=== PATIENT | female | born 1940 | race African-American/Black ===

== ENCOUNTER 2017-07-11 08:26 | Day surgery (SDC) | payer MEDICARE, BC ==
[~2017-07-11] VITALS: Ht 154.9 cm; Wt 61.2 kg
[~2017-07-11 08:26] MED LIST: CIPRO; DIAZ5TAB; LIPITOR; LYRICA; METF500T; NORCO; PREG20SO; PROCARDIA; VALIUM; [UNRECOGNIZED DRUG - OTHER]
[2017-07-11] MEDS ORDERED: FURO-151 PO (10:29)
[2017-07-11] MEDS ORDERED: OMEP20CA10 PO (10:29)
[2017-07-11] MEDS ORDERED: SACU1TAB PO (10:29)
[2017-07-11] MEDS ORDERED: COR6 PO (10:29)
[2017-07-11] MEDS ORDERED: POTA20TA12 PO (10:29)
[2017-07-11] MEDS ORDERED: LIDOCAINE HCL 1% 20ML VIAL (Pyxis) INJ ONE (11:24)
[2017-07-11] MEDS ORDERED: MIDAZOLAM HCL 2 MG/2 ML VIAL ONE (11:37)
[2017-07-11] MEDS ORDERED: FENTANYL CITRATE/PF 50MCG/ML 2ML VIAL ONE (11:38)
[2017-07-11] MEDS ORDERED: IODIXANOL 320MG/ML 100 ML BOTTLE IV ONE (11:47)
[2017-07-11] MEDS ORDERED: NITROGLYCERIN 50MCG/ML 10ML VIAL (CATH LAB) IV ONE (11:59)
[2017-07-11] MEDS ORDERED: HEPARIN SODIUM 1,000 UNIT/1ML VIAL IV ONE (11:59)
[2017-07-11] MEDS ORDERED: NICARDIPINE 100MCG/ML 10ML VIAL (CATH LAB) IV ONE (11:59)
== END 2017-07-11 16:30 | disposition home or self-care (01) ==
LOC: CCL 08:26
PROVIDERS: ATTEND Specialist
DX: I25.10 Atherosclerotic heart disease of native coronary artery without angina pectoris (principal); I42.0 Dilated cardiomyopathy; I10 Essential (primary) hypertension; Z88.2 Allergy status to sulfonamides; Z91.040 Latex allergy status; Z98.890 Other specified postprocedural states; Z79.899 Other long term (current) drug therapy; Z87.19 Personal history of other diseases of the digestive system
CPT/HCPCS: 82962; 93458; 99152; 99153; C1769; C1887; C1893; J1644; J2250; J3010; J3490; Q9967

== ENCOUNTER 2021-12-04 13:25 | Emergency (ER) | payer BC, MEDICARE ==
[~2021-12-04] VITALS: Ht 167.6 cm; Wt 77.0 kg
[~2021-12-04 13:25] MED LIST changes: +COR6 PO; +FURO-151 PO; +OMEP20CA14 PO; +POTA20TA12 PO; +SACU1TAB PO
[2021-12-04] MEDS ORDERED: ACETAMINOPHEN 325MG TABLET PO ONE (14:00)
[2021-12-04] MEDS ORDERED: MORPHINE SULFATE 2 MG/ML CPJ (NOT FOR IM USE) IV ONE (15:30)
[2021-12-04 15:58] LABS: BASOPHILS % 0.2 % (0.0-2.0); EOSINOPHILS % 2.3 % (0.0-5.0); HEMATOCRIT. 35.2 % (36.0-48.0); HEMOGLOBIN. 11.6 g/dL (12.0-16.0); LYMPHOCYTES % 21.6 % (20.0-50.0); MEAN CORPUSCULAR HEMOGLOBIN 32.5 pg (28.0-32.0); MEAN CORPUSCULAR VOLUME 98.6 fL (81.0-99.0); MEAN PLATELET VOLUME 7.6 fl (7.4-10.4); MONOCYTES % 10.4 % (2.0-8.0); NEUTROPHILS % 65.5 % (40.0-76.0); PLATELET 329 x1000/uL (130-400); RED BLOOD CELL COUNT 3.58 mill/uL (4.2-5.4); RED CELL DISTRIBUTION WIDTH 15.2 % (11.6-14.6)
[2021-12-04 19:00] VITALS: BP 143/69
== END 2021-12-04 20:45 | disposition admitted as inpatient to this hospital (09) ==
LOC: ER 13:39
DX: S72.392A Other fracture of shaft of left femur, initial encounter for closed fracture (principal); W01.0XXA Fall on same level from slipping, tripping and stumbling without subsequent striking against object, initial encounter; Y93.89 Activity, other specified; Y92.89 Other specified places as the place of occurrence of the external cause; Y99.8 Other external cause status; I11.0 Hypertensive heart disease with heart failure; I50.9 Heart failure, unspecified; Z98.890 Other specified postprocedural states; Z79.899 Other long term (current) drug therapy; Z88.2 Allergy status to sulfonamides; Z20.822 Contact with and (suspected) exposure to COVID-19
CPT/HCPCS: 36415; 72170; 73552; 73560; 80048; 85025; 87426; 96374; 99284; J2270

== ENCOUNTER 2024-04-08 07:17 | Inpatient (IN) | payer MEDICARE ==
[2024-04-08] VITALS (24 sets, daily range): BP systolic 92–149; BP diastolic 57–92; PULSE 59–80; RESP 12–23; TEMP 36.33624–37.39188; O2SAT 99–100
[~2024-04-08] VITALS: Ht 162.6 cm; Wt 64.9 kg
[~2024-04-08 07:17] MED LIST changes: -CIPRO; +COR6 MT; -COR6 PO; -DIAZ5TAB; -FURO-151 PO; -LIPITOR; -LYRICA; -METF500T; -NORCO; -OMEP20CA14 PO; -POTA20TA12 PO; -PREG20SO; -PROCARDIA; -SACU1TAB PO; +SODI325T MT; -VALIUM; -[UNRECOGNIZED DRUG - OTHER]
[2024-04-08] MEDS ORDERED: EPINEPHRINE 0.1MG/ML (1:10,000) 10ML SYR ONE (08:00)
[2024-04-08 08:09] LABS: BASOPHILS % 0.6 % (0.0-2.0); EOSINOPHILS % 2.9 % (0.0-5.0); HEMATOCRIT. 28.5 % (36.0-48.0); HEMOGLOBIN. 9.1 g/dL (12.0-16.0); LYMPHOCYTES % 22.7 % (20.0-50.0); MEAN CORPUSCULAR HEMOGLOBIN 30.6 pg (28.0-32.0); MEAN CORPUSCULAR HGB CONC 32.1 g/dL (31.0-37.0); MEAN CORPUSCULAR VOLUME 95.3 fL (81.0-99.0); MEAN PLATELET VOLUME 7.8 fl (7.4-10.4); MONOCYTES % 10.3 % (2.0-8.0); NEUTROPHILS % 63.5 % (40.0-76.0); PLATELET 342 x1000/uL (130-400); RED BLOOD CELL COUNT 2.99 mill/uL (4.2-5.4); RED CELL DISTRIBUTION WIDTH 14.5 % (11.6-14.6); WHITE BLOOD COUNT 7.2 x1000/uL (4.5-11.0)
[2024-04-08] MEDS: FUROSEMIDE 40MG/4ML VIAL IVP ONE (08:14)
[2024-04-08 08:21] LABS: CHLORIDE 110 mEq/L (98-107); INR 1.1; POTASSIUM 3.5 mEq/L (3.5-5.1); PROTHROMBIN TIME 12.1 sec (9.6-11.0); SODIUM 139 mEq/L (136-145)
[2024-04-08 08:22] LABS: CARBON DIOXIDE 23 mEq/L (21-32)
[2024-04-08 08:23] LABS: CALCIUM 9.1 mg/dL (8.7-10.4)
[2024-04-08 08:27] LABS: GLUCOSE 113 mg/dL (70-105)
[2024-04-08 08:28] LABS: UREA NITROGEN BLOOD 35 mg/dL (9-23)
[2024-04-08 08:42] LABS: CREATININE 1.5 mg/dL (0.6-1.0)
[2024-04-08 08:43] LABS: TROPONIN I HIGH SENSITIVITY 111 ng/L (3.0-34)
[2024-04-08] MEDS: ASPIRIN 325MG EC TABLET PO ONE (09:02)
[2024-04-08] MEDS: CLOPIDOGREL 75MG TABLET PO ONE (09:03)
[2024-04-08] MEDS: ENOXAPARIN 60MG/0.6ML SYR SUBCUT SCH (10:24)
[2024-04-08] MEDS ORDERED: PROPOFOL 10MG/ML 100ML 100 ML IV PRN (11:15)
[2024-04-08] MEDS ORDERED: FENTANYL 2500MCG/250ML PMX 250 ML IV PRN (12:00)
[2024-04-08] MEDS ORDERED: FENTANYL CITRATE/PF 2,500 MCG in SODIUM CHLORIDE 0.9% 200 ML IV PRN (12:00)
[2024-04-08 12:11] LABS: BG BASE EXCESS -3.1 mmol/L (-2.0-3.0); BG CARBOXYHEMOGLOBIN 0.3 % (0.5-1.5); BG DEOXYHEMOGLOBIN 0.2 % (0.0-5.0); BG HCO3 ACT 21.5 mmol/L (21.0-28.0); BG METHEMOGLOBIN 0.3 % (0.5-1.5); BG OXYGEN SATURATION 99.8 % (94.0-98.0); BG OXYHEMOGLOBIN 99.2 % (94.0-98.0); BG PCO2 36.3 mmHg (32.0-45.0); BG PO2 356.2 mmHg (83.0-108.0); BG SAMPLE SITE RIGHT BRACHIAL; BG TOTAL HEMOGLOBIN 9.6 g/dL (12.0-16.0); BG VENT MODE VENT - AC
[2024-04-08] MEDS ORDERED: DOCUSATE SODIUM 100MG CAPSULE PO PRN (13:30)
[2024-04-08] MEDS ORDERED: AZITHROMYCIN 500MG/250ML 250 ML IV SCH (13:30)
[2024-04-08] MEDS ORDERED: FUROSEMIDE 40MG/4ML VIAL IVP SCH (13:30)
[2024-04-08] MEDS ORDERED: CEFTRIAXONE 1GM/50ML 50 ML IV SCH (13:30)
[2024-04-08] MEDS ORDERED: HYDRALAZINE 20MG/ML VIAL IV PRN (13:30)
[2024-04-08] MEDS ORDERED: ACETAMINOPHEN 325MG TABLET PO PRN (13:30)
[2024-04-08] MEDS ORDERED: IPRATROPIUM/ALBUTEROL 0.5-3(2.5)MG/3ML NEB HHN PRN (13:30)
[2024-04-08] MEDS ORDERED: SACU1TAB PO (13:38)
[2024-04-08] MEDS ORDERED: FURO20TA4 MT (13:38)
[2024-04-08] MEDS ORDERED: COR6 MT (13:38)
[2024-04-08] MEDS ORDERED: FUROSEMIDE 20MG/2ML VIAL IVP SCH (13:45)
[2024-04-08] MEDS: PROPOFOL 10MG/ML 100ML 100 ML IV PRN (14:11)
[2024-04-08] MEDS ORDERED: POTASSIUM CHLORIDE 20 MEQ in DEXT 5% WATER 90 ML IV ONE (15:15)
[2024-04-08 15:51] LABS: CREATINE KINASE MB FRACTION 1.2 ng/mL (0.5-3.6)
[2024-04-08 15:55] LABS: THYROID STIMULATING HORMONE 2.31 uIU/mL (0.55-4.78)
[2024-04-08 15:56] LABS: T4 FREE 1.2 ng/dL (0.89-1.76)
[2024-04-08] MEDS: INSULIN LISPRO 100 UNITS/ML SUBCUT SCH (17:00)
[2024-04-08] MEDS: KCL 20MEQ/100ML PREMIX 100 ML IV NR (17:16)
[2024-04-08] MEDS: AZITHROMYCIN 500MG/250ML 250 ML IV SCH (17:17)
[2024-04-08] MEDS: CEFTRIAXONE 1GM/50ML 50 ML IV SCH (17:17)
[2024-04-08] MEDS: BLOOD SUGAR DIAGNOSTIC STRIP TEST SCH (17:17)
[2024-04-08] MEDS: FUROSEMIDE 40MG/4ML VIAL IVP SCH (17:21)
[2024-04-08] MEDS: PANTOPRAZOLE SODIUM 40 MG/VIAL IV SCH (19:48)
[2024-04-08] MEDS: POTASSIUM CHLORIDE 20MEQ/PACKET NG SCH (19:48)
[2024-04-08 22:48] LABS: CLARITY URINE CLEAR (CLEAR); COLOR URINE YELLOW (YELLOW); GLUCOSE URINE NEGATIVE (NEGATIVE); KETONES URINE NEGATIVE (NEGATIVE); LEUKOCYTE ESTERASE URINE 1+ (NEGATIVE); NITRITE URINE NEGATIVE (NEGATIVE); OCCULT BLOOD URINE 1+ (NEGATIVE); PROTEIN URINE 2+ (NEGATIVE); SPECIFIC GRAVITY URINE 1.009 (1.005-1.030); UROBILINOGEN URINE 0.2 E.U./dL (0.2-1.0)
[2024-04-08 22:59] LABS: *AMPHETAMINES SCREEN URINE NEGATIVE (NEGATIVE); *BARBITURATES SCREEN URINE NEGATIVE (NEGATIVE); *BENZODIAZEPINES SCREEN URINE NEGATIVE (NEGATIVE); *COCAINE SCREEN URINE NEGATIVE (NEGATIVE)
[2024-04-08 23:00] LABS: METHADONE URINE SCREEN NEGATIVE (NEGATIVE); OPIATES URINE SCREEN NEGATIVE (NEGATIVE); PHENCYCLIDINE URINE SCREEN NEGATIVE (NEGATIVE)
[2024-04-08 23:01] LABS: CANNABINOID URINE SCREEN NEGATIVE (NEGATIVE); ECSTASY MDMA SCREEN URINE NEGATIVE (NEGATIVE)
[2024-04-08 23:16] LABS: BACTERIA URINE 1+; SQUAMOUS EPITHELIAL CELL URINE FEW /lpf (RARE/1+)
[2024-04-08 23:35] LABS: CREATINE KINASE MB FRACTION 1.4 ng/mL (0.5-3.6)
[2024-04-09] VITALS (65 sets, daily range): BP systolic 88–139; BP diastolic 54–106; PULSE 62–103; RESP 6–23; TEMP 36.72516–37.28076; O2SAT 97–100
[2024-04-09] MEDS: DEXTROSE 50% WATER 50ML SYRINGE IV PRN (05:35)
[2024-04-09] MEDS: BLOOD SUGAR DIAGNOSTIC STRIP TEST SCH (05:40)
[2024-04-09] MEDS: INSULIN LISPRO 100 UNITS/ML SUBCUT SCH (05:40)
[2024-04-09 05:44] LABS: CARBON DIOXIDE 24 mEq/L (21-32); CHLORIDE 107 mEq/L (98-107); POTASSIUM 3.9 mEq/L (3.5-5.1); SODIUM 142 mEq/L (136-145)
[2024-04-09 05:45] LABS: CALCIUM 8.7 mg/dL (8.7-10.4)
[2024-04-09 05:49] LABS: FOLIC ACID (FOLATE) SERUM > 20.00 ng/mL (>5.38); IRON 24 ug/dL (50-170); VITAMIN B12 SERUM 1092 pg/mL (211-911)
[2024-04-09 05:50] LABS: FERRITIN 50 ng/mL (10-291); GLUCOSE 74 mg/dL (70-105); TRIGLYCERIDE 94 mg/dL (0-150); UREA NITROGEN BLOOD 37 mg/dL (9-23)
[2024-04-09 05:51] LABS: LDL CHOLESTEROL 116 mg/dL (5-100)
[2024-04-09 05:52] LABS: ALANINE AMINOTRANSFERASE 219 IU/L (10-49); ALBUMIN 3.7 g/dL (3.2-4.8); ASPARTATE AMINOTRANSFERASE 189 IU/L (<34); BILIRUBIN DIRECT 0.1 mg/dL (<=3.0); BILIRUBIN TOTAL 0.3 mg/dL (0.1-1.0); CHOLESTEROL 162 mg/dL (<200); HDL CHOLESTEROL 29 mg/dL (>65); PHOSPHORUS 4.7 mg/dL (2.5-4.9); PROTEIN TOTAL 6.7 g/dL (6.0-8.3); TOTAL IRON BINDING CAPACITY 255 ug/dl (250-425)
[2024-04-09 05:59] LABS: INR 1.1; PROTHROMBIN TIME 11.9 sec (9.6-11.0)
[2024-04-09 06:01] LABS: BASOPHILS % 0.5 % (0.0-2.0); EOSINOPHILS % 1.9 % (0.0-5.0); HEMATOCRIT. 26.5 % (36.0-48.0); HEMOGLOBIN. 8.8 g/dL (12.0-16.0); LYMPHOCYTES % 22.9 % (20.0-50.0); MEAN CORPUSCULAR HEMOGLOBIN 31.7 pg (28.0-32.0); MEAN CORPUSCULAR HGB CONC 33.3 g/dL (31.0-37.0); MEAN CORPUSCULAR VOLUME 95.2 fL (81.0-99.0); MEAN PLATELET VOLUME 8.3 fl (7.4-10.4); MONOCYTES % 11.9 % (2.0-8.0); NEUTROPHILS % 62.8 % (40.0-76.0); PLATELET 329 x1000/uL (130-400); RED BLOOD CELL COUNT 2.78 mill/uL (4.2-5.4); RED CELL DISTRIBUTION WIDTH 14.2 % (11.6-14.6); WHITE BLOOD COUNT 8.6 x1000/uL (4.5-11.0)
[2024-04-09 06:25] LABS: TROPONIN I HIGH SENSITIVITY 226 ng/L (3.0-34)
[2024-04-09] MEDS: ASPIRIN 81MG TABLET PO SCH (08:47)
[2024-04-09] MEDS: ENOXAPARIN 30MG/0.3ML SYR SUBCUT SCH (09:23)
[2024-04-09] MEDS: DEXT 5%/0.45% NACL 1000ML 1,000 ML IV SCH (13:46)
[2024-04-09] MEDS: DOXYCYCLINE 100MG/100ML 100 ML IV SCH (13:47)
[2024-04-09 15:16] LABS: BG BASE EXCESS -0.7 mmol/L (-2.0-3.0); BG CARBOXYHEMOGLOBIN 1.1 % (0.5-1.5); BG DEOXYHEMOGLOBIN 0.5 % (0.0-5.0); BG FRACTION INSPIRED OXYGEN 40; BG HCO3 ACT 22.3 mmol/L (21.0-28.0); BG METHEMOGLOBIN 0.3 % (0.5-1.5); BG OXYGEN SATURATION 99.5 % (94.0-98.0); BG OXYHEMOGLOBIN 98.1 % (94.0-98.0); BG PCO2 30.2 mmHg (32.0-45.0); BG PH 7.486 (7.350-7.450); BG SAMPLE SITE LEFT RADIAL; BG TOTAL HEMOGLOBIN 8.8 g/dL (12.0-16.0); BG VENT MODE VENT - CPAP
[2024-04-09] MEDS: CARVEDILOL 3.125 MG TABLET NG SCH (21:27)
[2024-04-10] VITALS (33 sets, daily range): BP systolic 117–141; BP diastolic 56–88; PULSE 72–91; RESP 6–19; TEMP 36.83628–37.61412; O2SAT 99–100
[2024-04-10] MEDS: ACETAMINOPHEN 325MG TABLET PO PRN (00:05)
[2024-04-10 05:18] LABS: POTASSIUM 4.6 mEq/L (3.5-5.1)
[2024-04-10 05:24] LABS: CREATININE 2.1 mg/dL (0.6-1.0)
[2024-04-10 05:34] LABS: HEMATOCRIT. 25.5 % (36.0-48.0); HEMOGLOBIN. 8.5 g/dL (12.0-16.0); MEAN CORPUSCULAR HEMOGLOBIN 31.4 pg (28.0-32.0); MEAN CORPUSCULAR HGB CONC 33.2 g/dL (31.0-37.0); MEAN CORPUSCULAR VOLUME 94.6 fL (81.0-99.0); MEAN PLATELET VOLUME 8.4 fl (7.4-10.4); PLATELET 337 x1000/uL (130-400); RED BLOOD CELL COUNT 2.69 mill/uL (4.2-5.4); RED CELL DISTRIBUTION WIDTH 14.2 % (11.6-14.6); WHITE BLOOD COUNT 12.6 x1000/uL (4.5-11.0)
[2024-04-10 06:11] LABS: DIFFERENTIAL COMMENT 1
[2024-04-10] MEDS: FUROSEMIDE 40MG/4ML VIAL IVP SCH (08:40)
[2024-04-10 13:20] LABS: BG BASE EXCESS -2.1 mmol/L (-2.0-3.0); BG CARBOXYHEMOGLOBIN 0.3 % (0.5-1.5); BG FRACTION INSPIRED OXYGEN 40; BG HCO3 ACT 20.8 mmol/L (21.0-28.0); BG METHEMOGLOBIN 0.3 % (0.5-1.5); BG OXYHEMOGLOBIN 98.4 % (94.0-98.0); BG PCO2 29.4 mmHg (32.0-45.0); BG PH 7.468 (7.350-7.450); BG PO2 140.4 mmHg (83.0-108.0); BG SAMPLE SITE RIGHT RADIAL; BG TOTAL HEMOGLOBIN 10.2 g/dL (12.0-16.0); BG VENT MODE VENT - CPAP
[2024-04-10 15:29] LABS: PLATELET ESTIMATE NORMAL
[2024-04-10] MEDS ORDERED: NALOXONE HCL 0.4MG/ML VIAL IV PRN (15:30)
[2024-04-10] MEDS: HYDROCODONE/ACETAMINOPHEN 5/325MG TABLET PO PRN (16:29)
[2024-04-10] MEDS ORDERED: NON FORMULARY MED XX SCH (18:45)
[2024-04-11] VITALS (30 sets, daily range): BP systolic 83–145; BP diastolic 54–113; PULSE 79–113; RESP 10–24; TEMP 36.83628–37.05852; O2SAT 94–100
[2024-04-11 06:07] LABS: CARBON DIOXIDE 25 mEq/L (21-32); CHLORIDE 106 mEq/L (98-107); POTASSIUM 3.7 mEq/L (3.5-5.1); SODIUM 140 mEq/L (136-145)
[2024-04-11 06:08] LABS: CALCIUM 8.7 mg/dL (8.7-10.4)
[2024-04-11 06:12] LABS: CREATININE 1.9 mg/dL (0.6-1.0); GLUCOSE 126 mg/dL (70-105)
[2024-04-11 06:13] LABS: UREA NITROGEN BLOOD 41 mg/dL (9-23)
[2024-04-11 06:14] LABS: ALANINE AMINOTRANSFERASE 96 IU/L (10-49); ALBUMIN 3.6 g/dL (3.2-4.8); ASPARTATE AMINOTRANSFERASE 36 IU/L (<34)
[2024-04-11 06:15] LABS: BILIRUBIN TOTAL 0.3 mg/dL (0.1-1.0); PROTEIN TOTAL 6.7 g/dL (6.0-8.3)
[2024-04-11 06:55] LABS: HEMATOCRIT 24.7 % (36.0-48.0); HEMOGLOBIN 7.8 g/dL (12.0-16.0); MEAN CORPUSCULAR HEMOGLOBIN 30.6 pg (28.0-32.0); MEAN CORPUSCULAR HGB CONC 31.7 g/dL (31.0-37.0); MEAN CORPUSCULAR VOLUME 96.5 fL (81.0-99.0); PLATELET 323 x1000/uL (130-400); RED BLOOD CELL COUNT 2.56 mill/uL (4.2-5.4); RED CELL DISTRIBUTION WIDTH 14.8 % (11.6-14.6); WHITE BLOOD COUNT 12.6 x1000/uL (4.5-11.0)
[2024-04-11] MEDS: POTASSIUM CHLORIDE 20MEQ/PACKET NG SCH (08:29)
[2024-04-11] MEDS: LIDOCAINE 5% PATCH TOP SCH (08:30)
[2024-04-11] MEDS: MODAFINIL 200MG TABLET PO SCH (08:31)
[2024-04-11] MEDS: METHYLPREDNISOLONE SOD SUCC 40MG/ML (ACT-O-VIAL) IV SCH (12:15)
[2024-04-11 12:55] LABS: BG BASE EXCESS -2.1 mmol/L (-2.0-3.0); BG CARBOXYHEMOGLOBIN 0.8 % (0.5-1.5); BG DEOXYHEMOGLOBIN 0.7 % (0.0-5.0); BG FRACTION INSPIRED OXYGEN 40; BG METHEMOGLOBIN 0.3 % (0.5-1.5); BG OXYGEN SATURATION 99.3 % (94.0-98.0); BG OXYHEMOGLOBIN 98.2 % (94.0-98.0); BG PH 7.417 (7.350-7.450); BG SAMPLE SITE RIGHT RADIAL; BG TOTAL HEMOGLOBIN 8.7 g/dL (12.0-16.0); BG VENT MODE VENT - CPAP
[2024-04-11] MEDS ORDERED: BACLOFEN 10MG TABLET PO SCH (14:00)
[2024-04-11 16:59] LABS: BG BASE EXCESS -1.6 mmol/L (-2.0-3.0); BG CARBOXYHEMOGLOBIN 0.1 % (0.5-1.5); BG DEOXYHEMOGLOBIN 0.8 % (0.0-5.0); BG FRACTION INSPIRED OXYGEN 40; BG HCO3 ACT 22.1 mmol/L (21.0-28.0); BG METHEMOGLOBIN 0.3 % (0.5-1.5); BG OXYGEN SATURATION 99.2 % (94.0-98.0); BG OXYHEMOGLOBIN 98.8 % (94.0-98.0); BG PH 7.443 (7.350-7.450); BG PO2 141.3 mmHg (83.0-108.0); BG SAMPLE SITE RIGHT RADIAL; BG TOTAL HEMOGLOBIN 9.1 g/dL (12.0-16.0); BG VENT MODE COOL AEROSOL
[2024-04-11 21:25] LABS: BG BASE EXCESS 0.6 mmol/L (-2.0-3.0); BG CARBOXYHEMOGLOBIN 0.3 % (0.5-1.5); BG DEOXYHEMOGLOBIN 0.3 % (0.0-5.0); BG FRACTION INSPIRED OXYGEN 40; BG HCO3 ACT 24.5 mmol/L (21.0-28.0); BG METHEMOGLOBIN 0.3 % (0.5-1.5); BG OXYGEN SATURATION 99.7 % (94.0-98.0); BG OXYHEMOGLOBIN 99.1 % (94.0-98.0); BG PCO2 36.1 mmHg (32.0-45.0); BG PO2 185.1 mmHg (83.0-108.0); BG TOTAL HEMOGLOBIN 8.6 g/dL (12.0-16.0); BG VENT MODE COOL AEROSOL
[2024-04-12] VITALS (15 sets, daily range): BP systolic 104–134; BP diastolic 49–69; PULSE 74–94; RESP 13–23; TEMP 36.6696–36.9474; O2SAT 94–100
[2024-04-12 16:31] LABS: POTASSIUM 5.1 mEq/L (3.5-5.1)
[2024-04-12 16:32] LABS: CALCIUM 8.7 mg/dL (8.7-10.4)
[2024-04-12 16:37] LABS: CREATININE 2.1 mg/dL (0.6-1.0)
[2024-04-12 16:38] LABS: HEMOGLOBIN. 7.9 g/dL (12.0-16.0); MEAN CORPUSCULAR HEMOGLOBIN 30.3 pg (28.0-32.0); MEAN CORPUSCULAR HGB CONC 31.5 g/dL (31.0-37.0); MEAN CORPUSCULAR VOLUME 96.3 fL (81.0-99.0); MEAN PLATELET VOLUME 8.9 fl (7.4-10.4); PLATELET 343 x1000/uL (130-400); RED BLOOD CELL COUNT 2.59 mill/uL (4.2-5.4); RED CELL DISTRIBUTION WIDTH 14.7 % (11.6-14.6); WHITE BLOOD COUNT 16.1 x1000/uL (4.5-11.0)
[2024-04-12 16:40] LABS: DIFFERENTIAL COMMENT 1
[2024-04-12] MEDS: TEMAZEPAM 15MG CAPSULE PO PRN (22:04)
[2024-04-12 23:22] LABS: PLATELET ESTIMATE NORMAL
[2024-04-12 23:23] LABS: ANISOCYTOSIS 1+; OVALOCYTES 1+
[2024-04-13] VITALS (11 sets, daily range): BP systolic 94–130; BP diastolic 44–85; PULSE 76–89; RESP 12–24; TEMP 36.3918–36.6696; O2SAT 94–100
[2024-04-13 08:09] LABS: BASOPHILS % 0.2 % (0.0-2.0); EOSINOPHILS % 0.2 % (0.0-5.0); HEMATOCRIT. 24.7 % (36.0-48.0); HEMOGLOBIN. 7.9 g/dL (12.0-16.0); LYMPHOCYTES % 15.2 % (20.0-50.0); MEAN CORPUSCULAR HEMOGLOBIN 31.1 pg (28.0-32.0); MEAN CORPUSCULAR VOLUME 97.3 fL (81.0-99.0); MEAN PLATELET VOLUME 8.7 fl (7.4-10.4); MONOCYTES % 10.7 % (2.0-8.0); NEUTROPHILS % 73.7 % (40.0-76.0); PLATELET 349 x1000/uL (130-400); RED BLOOD CELL COUNT 2.54 mill/uL (4.2-5.4); RED CELL DISTRIBUTION WIDTH 14.5 % (11.6-14.6); WHITE BLOOD COUNT 14.7 x1000/uL (4.5-11.0)
[2024-04-13 08:18] LABS: CALCIUM 8.9 mg/dL (8.7-10.4); POTASSIUM 4.7 mEq/L (3.5-5.1)
[2024-04-13 08:24] LABS: CREATININE 2.2 mg/dL (0.6-1.0)
[2024-04-13] MEDS: PREDNISONE 20MG TABLET PO SCH (09:02)
[2024-04-13] MEDS: INSULIN LISPRO 100 UNITS/ML SUBCUT SCH (20:40)
[2024-04-13] MEDS: DOXYCYCLINE HYCLATE 100MG CAPSULE PO SCH (20:40)
[2024-04-13] MEDS: BLOOD SUGAR DIAGNOSTIC STRIP TEST SCH (20:40)
[2024-04-14] VITALS: BP 124/60; PULSE 79; RESP 19; TEMP 36.72516; O2SAT 98
[2024-04-14 04:00] VITALS: BP 126/57; PULSE 74; RESP 14; TEMP 36.55848; O2SAT 100
[2024-04-14 08:00] VITALS: BP 120/54; PULSE 74; RESP 15; TEMP 36.78072; O2SAT 99
[2024-04-14] MEDS: FAMOTIDINE 20MG/2ML VIAL IV SCH (08:15)
[2024-04-14 10:19] LABS: BASOPHILS % 0.2 % (0.0-2.0); HEMATOCRIT. 24.2 % (36.0-48.0); HEMOGLOBIN. 7.7 g/dL (12.0-16.0); LYMPHOCYTES % 31.4 % (20.0-50.0); MEAN CORPUSCULAR HEMOGLOBIN 30.6 pg (28.0-32.0); MEAN CORPUSCULAR HGB CONC 31.8 g/dL (31.0-37.0); MEAN PLATELET VOLUME 8.6 fl (7.4-10.4); MONOCYTES % 10.9 % (2.0-8.0); NEUTROPHILS % 55.5 % (40.0-76.0); PLATELET 393 x1000/uL (130-400); RED BLOOD CELL COUNT 2.52 mill/uL (4.2-5.4); RED CELL DISTRIBUTION WIDTH 14.4 % (11.6-14.6); WHITE BLOOD COUNT 9.3 x1000/uL (4.5-11.0)
[2024-04-14 10:25] LABS: CALCIUM 8.8 mg/dL (8.7-10.4)
[2024-04-14 12:00] VITALS: BP 114/55; PULSE 78; RESP 17; TEMP 36.61404
[2024-04-14 16:00] VITALS: BP 123/54; PULSE 76; RESP 19; TEMP 36.44736; O2SAT 98
[2024-04-14 20:00] VITALS: BP 124/58; PULSE 77; RESP 15; TEMP 36.55848; O2SAT 100
[2024-04-14 21:16] LABS: CLARITY URINE CLEAR (CLEAR); COLOR URINE YELLOW (YELLOW); GLUCOSE URINE NEGATIVE (NEGATIVE); KETONES URINE NEGATIVE (NEGATIVE); LEUKOCYTE ESTERASE URINE TRACE (NEGATIVE); NITRITE URINE NEGATIVE (NEGATIVE); OCCULT BLOOD URINE NEGATIVE (NEGATIVE); PROTEIN URINE NEGATIVE (NEGATIVE); SPECIFIC GRAVITY URINE 1.013 (1.005-1.030); UROBILINOGEN URINE 0.2 E.U./dL (0.2-1.0)
[2024-04-14 22:35] LABS: BACTERIA URINE NONE SEEN; RBC URINE NONE SEEN /hpf (0-2); SQUAMOUS EPITHELIAL CELL URINE NONE SEEN /lpf (RARE/1+); WBC URINE NONE SEEN /hpf (0-2)
[2024-04-15] VITALS: BP 118/56; PULSE 75; RESP 16; TEMP 36.9474; O2SAT 98
[2024-04-15 04:16] VITALS: BP 113/54; PULSE 71; RESP 18; TEMP 36.55848; O2SAT 95
[2024-04-15 08:00] VITALS: BP 122/59; PULSE 73; RESP 14; TEMP 37.11408; O2SAT 98
[2024-04-15 12:00] VITALS: BP 116/53; PULSE 73; RESP 16; TEMP 36.83628; O2SAT 97
[2024-04-15 16:00] VITALS: BP 127/64; PULSE 76; RESP 19; O2SAT 100
[2024-04-15 20:00] VITALS: BP 110/75; PULSE 76; RESP 18; TEMP 36.89184; O2SAT 98
[2024-04-16] VITALS (10 sets, daily range): BP systolic 114–138; BP diastolic 49–73; PULSE 75–83; RESP 14–20; TEMP 36.6696–36.9474; O2SAT 94–100
[2024-04-16] MEDS: ONDANSETRON HCL 4MG/2ML INJ IV PRN (10:01)
[2024-04-16] MEDS ORDERED: COR3 NG (17:16)
[2024-04-16] MEDS ORDERED: ASPI-1160 PO (17:16)
[2024-04-16] MEDS ORDERED: P20 PO (17:16)
[2024-04-16] MEDS ORDERED: DOXY100C5 PO (17:16)
[2024-04-16] MEDS ORDERED: ATOR20TA MT (17:18)
[2024-04-18] MEDS ORDERED: AMOX250S70 GT (12:28)
== END 2024-04-16 20:24 | disposition home health service (06) | DRG 208 ==
LOC: ER 07:17 → MICUNO 08:22 → MICUSO 04-11 23:14 → 5EST 04-12 03:20
PROVIDERS: ADMIT Internal Medicine; ATTEND Internal Medicine
PROC: 5A1945Z Respiratory Ventilation, 24-96 Consecutive Hours (ICD-10-PCS; principal; 2024-04-08)
PROC: 0BH17EZ Insertion of Endotracheal Airway into Trachea, Via Natural or Artificial Opening (ICD-10-PCS; 2024-04-08)
PROC: 06HY33Z Insertion of Infusion Device into Lower Vein, Percutaneous Approach (ICD-10-PCS; 2024-04-08)
DX: J96.01 Acute respiratory failure with hypoxia (principal); G93.41 Metabolic encephalopathy; I46.9 Cardiac arrest, cause unspecified; I50.23 Acute on chronic systolic (congestive) heart failure; I13.0 Hypertensive heart and chronic kidney disease with heart failure and stage 1 through stage 4 chronic kidney disease, or unspecified chronic kidney disease; E87.3 Alkalosis; N17.9 Acute kidney failure, unspecified; I42.9 Cardiomyopathy, unspecified; Z20.822 Contact with and (suspected) exposure to COVID-19; K27.9 Peptic ulcer, site unspecified, unspecified as acute or chronic, without hemorrhage or perforation; N18.9 Chronic kidney disease, unspecified; I44.7 Left bundle-branch block, unspecified; Z96.649 Presence of unspecified artificial hip joint; R94.31 Abnormal electrocardiogram [ECG] [EKG]; E78.5 Hyperlipidemia, unspecified; E11.22 Type 2 diabetes mellitus with diabetic chronic kidney disease; E87.6 Hypokalemia; G24.9 Dystonia, unspecified; D64.9 Anemia, unspecified; I34.0 Nonrheumatic mitral (valve) insufficiency; J44.9 Chronic obstructive pulmonary disease, unspecified; Z79.899 Other long term (current) drug therapy; Z88.2 Allergy status to sulfonamides
CPT/HCPCS: 36415; 36600; 70551; 71045; 73030; 80048; 80053; 80061; 80076; 80305; 81003; 82375; 82550; 82553; 82607; 82728; 82746; 82805; 82962; 83036; 83540; 83550; 83605; 83735; 83880; 84100; 84145; 84439; 84443; 84480; 84484; 85025; 85027; 85379; 87077; 87186; 87426; 93005; 93306; 94003; 94640; 97162; 99291; J0456; J0696; J1650; J1815; J1940; J2405; J2470; J2704; J2920; J3480; J3490; J7512

== ENCOUNTER 2024-04-28 07:34 | Inpatient (IN) | payer MEDICARE ==
[~2024-04-28] VITALS: Ht 154.9 cm; Wt 60.3 kg
[~2024-04-28 07:34] MED LIST changes: +AMOX250S70 GT; +ASPI-1160 PO; +ATOR20TA MT; +FURO20TA4 MT; +SACU1TAB PO; -SODI325T MT
[2024-04-28] MEDS: ASPIRIN 325MG TABLET PO ONE (08:21)
[2024-04-28 08:23] LABS: BASOPHILS % 0.7 % (0.0-2.0); EOSINOPHILS % 1.5 % (0.0-5.0); HEMATOCRIT. 26.3 % (36.0-48.0); HEMOGLOBIN. 8.5 g/dL (12.0-16.0); LYMPHOCYTES % 10.6 % (20.0-50.0); MEAN CORPUSCULAR HEMOGLOBIN 31.1 pg (28.0-32.0); MEAN CORPUSCULAR HGB CONC 32.4 g/dL (31.0-37.0); MEAN PLATELET VOLUME 8.1 fl (7.4-10.4); MONOCYTES % 8.5 % (2.0-8.0); NEUTROPHILS % 78.7 % (40.0-76.0); PLATELET 374 x1000/uL (130-400); RED BLOOD CELL COUNT 2.74 mill/uL (4.2-5.4); WHITE BLOOD COUNT 11.6 x1000/uL (4.5-11.0)
[2024-04-28 08:29] LABS: CHLORIDE 106 mEq/L (98-107); POTASSIUM 3.5 mEq/L (3.5-5.1); SODIUM 142 mEq/L (136-145)
[2024-04-28 08:30] LABS: CALCIUM 8.9 mg/dL (8.7-10.4); CARBON DIOXIDE 28 mEq/L (21-32)
[2024-04-28 08:35] LABS: CREATININE 1.8 mg/dL (0.6-1.0); GLUCOSE 114 mg/dL (70-105); UREA NITROGEN BLOOD 25 mg/dL (9-23)
[2024-04-28 08:41] LABS: TROPONIN I HIGH SENSITIVITY 285 ng/L (3.0-34)
[2024-04-28] MEDS: CEFTRIAXONE 1GM/50ML 50 ML IV ONE (09:45)
[2024-04-28] MEDS: FUROSEMIDE 40MG/4ML VIAL IVP ONE (09:50)
[2024-04-28] MEDS: ENOXAPARIN 60MG/0.6ML SYR SUBCUT ONE (10:12)
[2024-04-28] MEDS: AZITHROMYCIN 500MG/250ML 250 ML IV STA (10:13)
[2024-04-28 10:56] LABS: TROPONIN I HIGH SENSITIVITY 324 ng/L (3.0-34)
[2024-04-28] MEDS ORDERED: ASPIRIN 81MG TABLET PO SCH (13:45)
[2024-04-28] MEDS ORDERED: ONDANSETRON HCL 4MG/2ML INJ IV PRN (13:45)
[2024-04-28] MEDS ORDERED: IPRATROPIUM/ALBUTEROL 0.5-3(2.5)MG/3ML NEB HHN PRN (13:45)
[2024-04-28] MEDS ORDERED: ENOXAPARIN 30MG/0.3ML SYR SUBCUT SCH (14:00)
[2024-04-28] MEDS ORDERED: NALOXONE HCL 0.4MG/ML VIAL IV PRN (14:00)
[2024-04-28] MEDS: ATORVASTATIN CALCIUM 20MG TABLET PO SCH (14:13)
[2024-04-28] MEDS: CARVEDILOL 6.25 MG TABLET PO SCH (14:14)
[2024-04-28] MEDS: PIPERACILLIN/TAZO 3.375G/50ML 50 ML IV SCH (15:31)
[2024-04-28] MEDS: PANTOPRAZOLE SODIUM 40 MG/VIAL IV NR (17:31)
[2024-04-28 22:12] LABS: CREATINE KINASE MB FRACTION 2.5 ng/mL (0.5-3.6)
[2024-04-28 23:00] VITALS: BP 150/78; PULSE 80; RESP 20; TEMP 36.5292
[2024-04-28] MEDS: HYDROCODONE/ACETAMINOPHEN 5/325MG TABLET PO PRN (23:39)
[2024-04-29 04:00] VITALS: BP 148/80; PULSE 75; RESP 18; TEMP 36.114; O2SAT 100
[2024-04-29 06:42] LABS: CALCIUM 8.5 mg/dL (8.7-10.4); CARBON DIOXIDE 28 mEq/L (21-32); CHLORIDE 104 mEq/L (98-107); POTASSIUM 3.5 mEq/L (3.5-5.1); SODIUM 140 mEq/L (136-145)
[2024-04-29 06:47] LABS: CREATININE 1.7 mg/dL (0.6-1.0)
[2024-04-29 06:48] LABS: GLUCOSE 80 mg/dL (70-105); UREA NITROGEN BLOOD 26 mg/dL (9-23)
[2024-04-29 07:40] LABS: TROPONIN I HIGH SENSITIVITY 545 ng/L (3.0-34)
[2024-04-29 08:00] VITALS: BP 146/70; PULSE 77; RESP 18; TEMP 36.61404; O2SAT 97
[2024-04-29 08:03] LABS: BASOPHILS % 0.1 % (0.0-2.0); EOSINOPHILS % 2.2 % (0.0-5.0); HEMATOCRIT. 22.1 % (36.0-48.0); HEMOGLOBIN. 7.4 g/dL (12.0-16.0); LYMPHOCYTES % 23.1 % (20.0-50.0); MEAN CORPUSCULAR HEMOGLOBIN 31.5 pg (28.0-32.0); MEAN CORPUSCULAR HGB CONC 33.2 g/dL (31.0-37.0); MEAN CORPUSCULAR VOLUME 94.9 fL (81.0-99.0); MEAN PLATELET VOLUME 8.6 fl (7.4-10.4); MONOCYTES % 10.9 % (2.0-8.0); NEUTROPHILS % 63.7 % (40.0-76.0); PLATELET 282 x1000/uL (130-400); RED BLOOD CELL COUNT 2.33 mill/uL (4.2-5.4); RED CELL DISTRIBUTION WIDTH 15.7 % (11.6-14.6); WHITE BLOOD COUNT 9.9 x1000/uL (4.5-11.0)
[2024-04-29] MEDS ORDERED: FUROSEMIDE 20MG/2ML VIAL IVP NR (08:15)
[2024-04-29] MEDS ORDERED: ASPIRIN 81MG TABLET PO SCH (09:00)
[2024-04-29] MEDS ORDERED: ENOXAPARIN 30MG/0.3ML SYR SUBCUT SCH (09:00)
[2024-04-29] MEDS: FUROSEMIDE 40MG/4ML VIAL IVP SCH (10:39)
[2024-04-29] MEDS: NITROGLYCERIN OINT 1GM/INCH UDPKT TD SCH (10:39)
[2024-04-29] MEDS: PANTOPRAZOLE SODIUM 40 MG/VIAL IV SCH (10:39)
[2024-04-29 12:00] VITALS: BP 123/64; PULSE 75; RESP 19; TEMP 36.61404; O2SAT 100
[2024-04-29 14:33] LABS: BG BASE EXCESS 2.7 mmol/L (-2.0-3.0); BG CARBOXYHEMOGLOBIN 0.9 % (0.5-1.5); BG DEOXYHEMOGLOBIN 5.8 % (0.0-5.0); BG FRACTION INSPIRED OXYGEN 21; BG HCO3 ACT 26.8 mmol/L (21.0-28.0); BG METHEMOGLOBIN 0.3 % (0.5-1.5); BG OXYGEN SATURATION 94.1 % (94.0-98.0); BG PCO2 39.2 mmHg (32.0-45.0); BG PH 7.453 (7.350-7.450); BG PO2 67.6 mmHg (83.0-108.0); BG SAMPLE SITE RIGHT RADIAL; BG VENT MODE ROOM AIR
[2024-04-29 16:00] VITALS: BP 121/63; PULSE 75; RESP 20; TEMP 36.44736; O2SAT 95
[2024-04-29 20:00] VITALS: BP 137/70; PULSE 78; RESP 18; TEMP 36.28068; O2SAT 100
[2024-04-29] MEDS: ATORVASTATIN CALCIUM 20MG TABLET PO SCH (21:45)
[2024-04-29] MEDS: EPOETIN ALFA-EPBX 4,000 UNIT/ML VIAL SUBCUT NR (21:46)
[2024-04-30] VITALS (7 sets, daily range): BP systolic 130–136; BP diastolic 66–72; PULSE 73–95; RESP 18–20; TEMP 36.16956–36.50292; O2SAT 96–100
[2024-04-30 09:24] LABS: BASOPHILS % 0.8 % (0.0-2.0); EOSINOPHILS % 4.1 % (0.0-5.0); HEMATOCRIT. 21.7 % (36.0-48.0); HEMOGLOBIN. 7.3 g/dL (12.0-16.0); LYMPHOCYTES % 27.3 % (20.0-50.0); MEAN CORPUSCULAR HEMOGLOBIN 31.8 pg (28.0-32.0); MEAN CORPUSCULAR HGB CONC 33.6 g/dL (31.0-37.0); MEAN CORPUSCULAR VOLUME 94.6 fL (81.0-99.0); MEAN PLATELET VOLUME 8.4 fl (7.4-10.4); MONOCYTES % 10.8 % (2.0-8.0); PLATELET 276 x1000/uL (130-400); RED BLOOD CELL COUNT 2.29 mill/uL (4.2-5.4); RED CELL DISTRIBUTION WIDTH 15.3 % (11.6-14.6); WHITE BLOOD COUNT 6.1 x1000/uL (4.5-11.0)
[2024-04-30 09:28] LABS: CHLORIDE 102 mEq/L (98-107); POTASSIUM 3.6 mEq/L (3.5-5.1); SODIUM 137 mEq/L (136-145)
[2024-04-30 09:29] LABS: CALCIUM 8.9 mg/dL (8.7-10.4); CARBON DIOXIDE 28 mEq/L (21-32)
[2024-04-30 09:33] LABS: IRON 24 ug/dL (50-170)
[2024-04-30 09:34] LABS: CREATININE 1.6 mg/dL (0.6-1.0); GLUCOSE 93 mg/dL (70-105); UREA NITROGEN BLOOD 23 mg/dL (9-23)
[2024-04-30 09:36] LABS: TOTAL IRON BINDING CAPACITY 241 ug/dl (250-425)
[2024-04-30 09:44] LABS: TROPONIN I HIGH SENSITIVITY 235 ng/L (3.0-34)
[2024-04-30] MEDS: EPOETIN ALFA-EPBX 4,000 UNIT/ML VIAL SUBCUT SCH (22:24)
[2024-05-01] VITALS: BP 128/63; PULSE 75; RESP 19; TEMP 36.44736; O2SAT 100
[2024-05-01 04:00] VITALS: BP 126/62; PULSE 66; RESP 18; TEMP 36.50292; O2SAT 100
[2024-05-01 06:48] LABS: POTASSIUM 3.6 mEq/L (3.5-5.1)
[2024-05-01 06:50] LABS: CALCIUM 8.6 mg/dL (8.7-10.4)
[2024-05-01 06:52] LABS: BASOPHILS % 0.6 % (0.0-2.0); HEMATOCRIT. 22.9 % (36.0-48.0); HEMOGLOBIN. 7.5 g/dL (12.0-16.0); LYMPHOCYTES % 31.3 % (20.0-50.0); MEAN CORPUSCULAR HEMOGLOBIN 31.1 pg (28.0-32.0); MEAN CORPUSCULAR HGB CONC 32.7 g/dL (31.0-37.0); MEAN CORPUSCULAR VOLUME 95.1 fL (81.0-99.0); MEAN PLATELET VOLUME 7.9 fl (7.4-10.4); MONOCYTES % 12.5 % (2.0-8.0); NEUTROPHILS % 50.6 % (40.0-76.0); PLATELET 251 x1000/uL (130-400); RED BLOOD CELL COUNT 2.41 mill/uL (4.2-5.4); RED CELL DISTRIBUTION WIDTH 15.2 % (11.6-14.6)
[2024-05-01 06:54] LABS: CREATININE 1.7 mg/dL (0.6-1.0)
[2024-05-01 08:00] VITALS: BP 127/57; PULSE 69; RESP 20; TEMP 36.44736; O2SAT 100
[2024-05-01] MEDS: PANTOPRAZOLE 40MG DR TABLET PO SCH (09:33)
[2024-05-01 10:42] LABS: BG BASE EXCESS 2.4 mmol/L (-2.0-3.0); BG CARBOXYHEMOGLOBIN 0.7 % (0.5-1.5); BG DEOXYHEMOGLOBIN 2.8 % (0.0-5.0); BG FRACTION INSPIRED OXYGEN 21; BG METHEMOGLOBIN 0.3 % (0.5-1.5); BG OXYGEN SATURATION 97.2 % (94.0-98.0); BG OXYHEMOGLOBIN 96.2 % (94.0-98.0); BG PCO2 37.2 mmHg (32.0-45.0); BG PH 7.462 (7.350-7.450); BG PO2 90.7 mmHg (83.0-108.0); BG SAMPLE SITE LEFT RADIAL; BG TOTAL HEMOGLOBIN 15.2 g/dL (12.0-16.0); BG VENT MODE ROOM AIR
[2024-05-01 12:00] VITALS: BP 124/59; PULSE 79; RESP 18; TEMP 36.50292; O2SAT 98
[2024-05-01 16:00] VITALS: BP 132/72; PULSE 80; RESP 18; TEMP 36.55848; O2SAT 98
[2024-05-01 20:00] VITALS: BP 142/76; PULSE 83; RESP 19; TEMP 36.16956; O2SAT 100
[2024-05-02] VITALS: BP 138/65; PULSE 76; RESP 20; TEMP 36.33624; O2SAT 98
[2024-05-02 04:00] VITALS: BP 135/71; PULSE 72; RESP 20; TEMP 36.16956; O2SAT 98
[2024-05-02] MEDS: EPOETIN ALFA-EPBX 4,000 UNIT/ML VIAL SUBCUT NR (06:15)
[2024-05-02 07:13] LABS: HEMATOCRIT 22.7 % (36.0-48.0); HEMOGLOBIN 7.4 g/dL (12.0-16.0); MEAN CORPUSCULAR HEMOGLOBIN 31.3 pg (28.0-32.0); MEAN CORPUSCULAR HGB CONC 32.5 g/dL (31.0-37.0); MEAN CORPUSCULAR VOLUME 96.6 fL (81.0-99.0); PLATELET 250 x1000/uL (130-400); POTASSIUM 3.8 mEq/L (3.5-5.1); RED BLOOD CELL COUNT 2.36 mill/uL (4.2-5.4); RED CELL DISTRIBUTION WIDTH 15.1 % (11.6-14.6); WHITE BLOOD COUNT 6.3 x1000/uL (4.5-11.0)
[2024-05-02 07:14] LABS: CALCIUM 8.9 mg/dL (8.7-10.4)
[2024-05-02 07:18] LABS: CREATININE 1.5 mg/dL (0.6-1.0)
[2024-05-02 08:00] VITALS: BP 151/78; PULSE 77; RESP 18; TEMP 36.114; O2SAT 100; O2SAT 18
[2024-05-02 12:00] VITALS: BP 109/52; PULSE 74; RESP 18; TEMP 36.22512; O2SAT 100
[2024-05-02] MEDS ORDERED: PANT40TA51 PO (12:44)
[2024-05-02] MEDS ORDERED: ASPI-1160 PO (12:44)
[2024-05-02] MEDS ORDERED: SACU1TAB PO (12:44)
[2024-05-02] MEDS ORDERED: FURO20TA4 MT (12:44)
[2024-05-02] MEDS ORDERED: COR6 MT (12:44)
[2024-05-02] MEDS ORDERED: ATOR20TA MT (12:44)
[2024-05-02 14:05] VITALS: BP 109/52; PULSE 76; TEMP 97.6; O2SAT 100
== END 2024-05-02 15:20 | disposition home or self-care (01) | DRG 291 ==
LOC: ER 07:34 → EDBEDREQ 07:58 → EDBEDREQSVC 09:04 → EDBEDREQTM 09:04 → EDBEDREQ 09:04 → EDBEDREQSVC 16:18 → 5WST 20:56 → 7EST 23:00
PROVIDERS: ADMIT Internal Medicine; ATTEND Internal Medicine
DX: I13.0 Hypertensive heart and chronic kidney disease with heart failure and stage 1 through stage 4 chronic kidney disease, or unspecified chronic kidney disease (principal); I50.23 Acute on chronic systolic (congestive) heart failure; N18.9 Chronic kidney disease, unspecified; D53.9 Nutritional anemia, unspecified; I42.8 Other cardiomyopathies; I34.0 Nonrheumatic mitral (valve) insufficiency; E78.5 Hyperlipidemia, unspecified; E11.22 Type 2 diabetes mellitus with diabetic chronic kidney disease; I44.7 Left bundle-branch block, unspecified; Z86.74 Personal history of sudden cardiac arrest; Z88.2 Allergy status to sulfonamides
CPT/HCPCS: 36415; 36600; 71045; 80048; 82270; 82375; 82550; 82553; 82805; 83540; 83550; 83735; 84484; 85025; 85027; 93005; 99285; J0456; J0696; J0885; J1650; J1940; J2470; J2543

== ENCOUNTER 2024-12-28 19:18 | Inpatient (IN) | payer MEDICARE ==
[~2024-12-28] VITALS: Ht 152.4 cm; Wt 83.5 kg
[~2024-12-28 19:18] MED LIST changes: -AMOX250S70 GT; -ATOR20TA MT; +ATOR20TA65 PO; +CARV12.545 PO; -COR6 MT; -FURO20TA4 MT; +FURO40TA5 PO; +PANT40TA51 PO; +SPIR25TA6 PO
[2024-12-28 20:38] LABS: HEMATOCRIT. 25.9 % (36.0-48.0); HEMOGLOBIN. 8.6 g/dL (12.0-16.0); MEAN CORPUSCULAR HEMOGLOBIN 28.4 pg (28.0-32.0); MEAN CORPUSCULAR VOLUME 86.1 fL (81.0-99.0); MEAN PLATELET VOLUME 9.1 fl (7.4-10.4); PLATELET 166 x1000/uL (130-400); RED BLOOD CELL COUNT 3.01 mill/uL (4.2-5.4); RED CELL DISTRIBUTION WIDTH 20.7 % (11.6-14.6); WHITE BLOOD COUNT 4.5 x1000/uL (4.5-11.0)
[2024-12-28 20:42] LABS: DIFFERENTIAL COMMENT 1
[2024-12-28 20:45] LABS: CARBON DIOXIDE 26 mEq/L (21-32); CHLORIDE 103 mEq/L (98-107); SODIUM 139 mEq/L (136-145)
[2024-12-28 20:46] LABS: CALCIUM 8.7 mg/dL (8.7-10.4)
[2024-12-28 20:51] LABS: CREATININE 2.3 mg/dL (0.6-1.0); GLUCOSE 131 mg/dL (70-105); TROPONIN I HIGH SENSITIVITY 16 ng/L (3.0-34); UREA NITROGEN BLOOD 40 mg/dL (9-23)
[2024-12-28 20:54] LABS: ANISOCYTOSIS 1+; PLATELET ESTIMATE NORMAL
[2024-12-28] MEDS: FUROSEMIDE 40MG/4ML VIAL IVP NR (22:58)
[2024-12-29] VITALS: BP 125/66; PULSE 69; RESP 18; TEMP 36.4
[2024-12-29] MEDS ORDERED: ACETAMINOPHEN 650MG/20.3ML UDC PO PRN (03:30)
[2024-12-29 07:31] LABS: HEMATOCRIT. 25.8 % (36.0-48.0); HEMOGLOBIN. 8.6 g/dL (12.0-16.0); MEAN CORPUSCULAR HEMOGLOBIN 28.3 pg (28.0-32.0); MEAN CORPUSCULAR HGB CONC 33.3 g/dL (31.0-37.0); MEAN CORPUSCULAR VOLUME 85.2 fL (81.0-99.0); MEAN PLATELET VOLUME 9.5 fl (7.4-10.4); PLATELET 172 x1000/uL (130-400); RED BLOOD CELL COUNT 3.02 mill/uL (4.2-5.4); RED CELL DISTRIBUTION WIDTH 20.1 % (11.6-14.6); WHITE BLOOD COUNT 3.7 x1000/uL (4.5-11.0)
[2024-12-29 07:32] LABS: DIFFERENTIAL COMMENT 1
[2024-12-29 08:00] VITALS: BP 110/65; PULSE 71; RESP 20; TEMP 36.2; O2SAT 95
[2024-12-29 08:18] LABS: THYROID STIMULATING HORMONE 8.98 uIU/mL (0.55-4.78)
[2024-12-29] MEDS: CARVEDILOL 12.5MG TABLET PO SCH ×2 (09:18→21:09)
[2024-12-29] MEDS: ASPIRIN 81MG TABLET PO SCH (09:18)
[2024-12-29 12:00] VITALS: BP 108/74; PULSE 69; RESP 18; TEMP 36.2; O2SAT 95
[2024-12-29 12:14] LABS: ANISOCYTOSIS 3+; PLATELET ESTIMATE NORMAL
[2024-12-29 14:01] LABS: POTASSIUM 4.1 mEq/L (3.5-5.1)
[2024-12-29 14:02] LABS: CALCIUM 8.4 mg/dL (8.7-10.4)
[2024-12-29 14:07] LABS: CREATININE 2.2 mg/dL (0.6-1.0)
[2024-12-29] MEDS: ENOXAPARIN 30MG/0.3ML SYR SUBCUT SCH (15:05)
[2024-12-29 16:00] VITALS: BP 111/64; PULSE 66; RESP 20; TEMP 36.6; O2SAT 95
[2024-12-29 20:00] VITALS: BP 115/60; PULSE 70; RESP 18; TEMP 36.3; O2SAT 100
[2024-12-29] MEDS: ACETAMINOPHEN 650MG/20.3ML UDC PO PRN (21:08)
[2024-12-29] MEDS: FUROSEMIDE 40MG/4ML VIAL IVP SCH (21:08)
[2024-12-29] MEDS: ATORVASTATIN CALCIUM 20MG TABLET PO SCH (21:09)
[2024-12-30] VITALS: BP 118/61; PULSE 63; RESP 17; TEMP 36.4; O2SAT 99
[2024-12-30 04:00] VITALS: BP 116/68; PULSE 68; RESP 20; TEMP 36.3; O2SAT 100
[2024-12-30 08:00] VITALS: BP 104/74; PULSE 64; RESP 20; TEMP 36.6; O2SAT 97
[2024-12-30] MEDS: METOLAZONE 2.5MG TABLET PO ONE (08:42)
[2024-12-30 09:21] LABS: CHLORIDE 102 mEq/L (98-107); SODIUM 140 mEq/L (136-145)
[2024-12-30 09:22] LABS: CALCIUM 8.5 mg/dL (8.7-10.4); CARBON DIOXIDE 28 mEq/L (21-32); HEMATOCRIT. 23.9 % (36.0-48.0); HEMOGLOBIN. 7.9 g/dL (12.0-16.0); MEAN CORPUSCULAR HEMOGLOBIN 28.4 pg (28.0-32.0); MEAN CORPUSCULAR HGB CONC 33.3 g/dL (31.0-37.0); MEAN CORPUSCULAR VOLUME 85.2 fL (81.0-99.0); MEAN PLATELET VOLUME 10.2 fl (7.4-10.4); PLATELET 174 x1000/uL (130-400); RED CELL DISTRIBUTION WIDTH 20.5 % (11.6-14.6); WHITE BLOOD COUNT 3.5 x1000/uL (4.5-11.0)
[2024-12-30 09:27] LABS: CREATININE 2.2 mg/dL (0.6-1.0); GLUCOSE 85 mg/dL (70-105); TROPONIN I HIGH SENSITIVITY 15 ng/L (3.0-34); UREA NITROGEN BLOOD 42 mg/dL (9-23)
[2024-12-30 09:35] LABS: DIFFERENTIAL COMMENT 1
[2024-12-30] MEDS ORDERED: ASPIRIN 81MG EC TABLET PO ONE (10:00)
[2024-12-30] MEDS: MORPHINE SULFATE 2 MG/ML INJ (NOT FOR IM USE) IV PRN (10:56)
[2024-12-30] MEDS: MAGNESIUM OXIDE 400MG TABLET PO SCH (10:56)
[2024-12-30 12:00] VITALS: BP 108/52; PULSE 67; RESP 18; TEMP 36.4; O2SAT 97
[2024-12-30] MEDS ORDERED: MAGNESIUM OXIDE 400MG TABLET PO SCH (12:30)
[2024-12-30 16:00] VITALS: BP 90/52; PULSE 62; RESP 18; TEMP 36.2; O2SAT 97
[2024-12-30] MEDS: FUROSEMIDE 100MG/10ML VIAL IVP SCH (16:16)
[2024-12-30] MEDS: DOCUSATE SODIUM 100MG CAPSULE PO PRN (16:16)
[2024-12-30 20:00] VITALS: BP 123/60; PULSE 65; RESP 18; TEMP 36.5; O2SAT 100
[2024-12-30 21:10] LABS: PLATELET ESTIMATE NORMAL
[2024-12-30 21:11] LABS: ANISOCYTOSIS 3+; HYPOCHROMASIA 1+
[2024-12-30 21:12] LABS: OVALOCYTES 1+
[2024-12-31] VITALS: BP 112/65; PULSE 68; RESP 18; TEMP 36.6; O2SAT 100
[2024-12-31 04:00] VITALS: BP 109/46; PULSE 69; RESP 20; TEMP 36.4; O2SAT 100
[2024-12-31 06:09] LABS: HEMATOCRIT. 24.9 % (36.0-48.0); HEMOGLOBIN. 8.2 g/dL (12.0-16.0); MEAN CORPUSCULAR HEMOGLOBIN 27.9 pg (28.0-32.0); MEAN CORPUSCULAR HGB CONC 32.8 g/dL (31.0-37.0); MEAN CORPUSCULAR VOLUME 85.2 fL (81.0-99.0); MEAN PLATELET VOLUME 10.4 fl (7.4-10.4); PLATELET 176 x1000/uL (130-400); RED BLOOD CELL COUNT 2.92 mill/uL (4.2-5.4); RED CELL DISTRIBUTION WIDTH 20.2 % (11.6-14.6)
[2024-12-31 06:52] LABS: DIFFERENTIAL COMMENT 1
[2024-12-31 08:00] VITALS: BP 104/40; PULSE 80; RESP 18; TEMP 35.9; O2SAT 96
[2024-12-31 08:35] LABS: POTASSIUM 4.2 mEq/L (3.5-5.1)
[2024-12-31 08:36] LABS: CALCIUM 8.3 mg/dL (8.7-10.4)
[2024-12-31 08:41] LABS: CREATININE 2.3 mg/dL (0.6-1.0)
[2024-12-31] MEDS ORDERED: ASPIRIN 81MG EC TABLET PO SCH (09:00)
[2024-12-31] MEDS ORDERED: LIDOCAINE HCL 1% 20ML VIAL ONE ×2 (09:18→10:54)
[2024-12-31] MEDS ORDERED: IODIXANOL 320MG/ML 100 ML BOTTLE IV ONE ×2 (10:49→11:29)
[2024-12-31] MEDS ORDERED: FENTANYL CITRATE/PF 50MCG/ML 2ML VIAL ONE (10:53)
[2024-12-31] MEDS ORDERED: MIDAZOLAM HCL 2 MG/2 ML VIAL ONE (10:54)
[2024-12-31 12:00] VITALS: BP 116/53; PULSE 64; RESP 16; TEMP 35.8; O2SAT 100
[2024-12-31] MEDS: HYDROCODONE/ACETAMINOPHEN 5/325MG TABLET PO PRN (15:27)
[2024-12-31 15:28] LABS: ANISOCYTOSIS 2+; HYPOCHROMASIA 1+; PLATELET ESTIMATE NORMAL
[2024-12-31 16:00] VITALS: BP 116/52; PULSE 86; RESP 16; TEMP 35.9; O2SAT 97
[2024-12-31 20:00] VITALS: BP 106/47; PULSE 72; RESP 20; TEMP 36.6; O2SAT 100
[2025-01-01] VITALS (7 sets, daily range): BP systolic 99–115; BP diastolic 41–49; PULSE 69–77; RESP 18–20; TEMP 36.4–37; O2SAT 95–100
[2025-01-01] MEDS: METOLAZONE 2.5MG TABLET PO NR (06:14)
[2025-01-01 07:28] LABS: HEMATOCRIT. 24.2 % (36.0-48.0); HEMOGLOBIN. 7.8 g/dL (12.0-16.0); MEAN CORPUSCULAR HEMOGLOBIN 27.8 pg (28.0-32.0); MEAN CORPUSCULAR HGB CONC 32.3 g/dL (31.0-37.0); MEAN PLATELET VOLUME 9.9 fl (7.4-10.4); PLATELET 212 x1000/uL (130-400); RED BLOOD CELL COUNT 2.81 mill/uL (4.2-5.4); RED CELL DISTRIBUTION WIDTH 20.7 % (11.6-14.6); WHITE BLOOD COUNT 4.1 x1000/uL (4.5-11.0)
[2025-01-01 07:45] LABS: DIFFERENTIAL COMMENT 1; POTASSIUM 5.7 mEq/L (3.5-5.1)
[2025-01-01 07:46] LABS: CALCIUM 8.6 mg/dL (8.7-10.4)
[2025-01-01 07:51] LABS: CREATININE 2.4 mg/dL (0.6-1.0)
[2025-01-01] MEDS ORDERED: SODIUM POLYSTYRENE SULFONATE 15 G/60 ML BOT PO ONE (09:15)
[2025-01-01] MEDS ORDERED: TRAMADOL 50MG TABLET PO PRN (10:00)
[2025-01-01] MEDS: SODIUM ZIRCONIUM CYCLOSILICATE 10GM/PACKET PO NR (10:09)
[2025-01-01] MEDS: TRAMADOL 50MG TABLET PO SCH (10:10)
[2025-01-01 11:45] LABS: ANISOCYTOSIS 2+; PLATELET ESTIMATE NORMAL
[2025-01-01 11:46] LABS: HYPOCHROMASIA 1+
[2025-01-01] MEDS: FUROSEMIDE 40MG TABLET PO SCH (20:21)
[2025-01-01] MEDS: ZOLPIDEM TARTRATE 5MG TABLET PO PRN (22:14)
[2025-01-02] VITALS (7 sets, daily range): BP systolic 93–118; BP diastolic 38–54; PULSE 68–82; RESP 18–20; TEMP 36.5–36.6; O2SAT 96–99
[2025-01-02 07:59] LABS: POTASSIUM 4.3 mEq/L (3.5-5.1)
[2025-01-02 08:00] LABS: CALCIUM 8.3 mg/dL (8.7-10.4); HEMATOCRIT. 22.9 % (36.0-48.0); HEMOGLOBIN. 7.5 g/dL (12.0-16.0); MEAN CORPUSCULAR HEMOGLOBIN 28.1 pg (28.0-32.0); MEAN CORPUSCULAR HGB CONC 32.8 g/dL (31.0-37.0); MEAN CORPUSCULAR VOLUME 85.7 fL (81.0-99.0); MEAN PLATELET VOLUME 9.2 fl (7.4-10.4); PLATELET 222 x1000/uL (130-400); RED BLOOD CELL COUNT 2.68 mill/uL (4.2-5.4); RED CELL DISTRIBUTION WIDTH 20.4 % (11.6-14.6); WHITE BLOOD COUNT 4.1 x1000/uL (4.5-11.0)
[2025-01-02 08:04] LABS: CREATININE 2.2 mg/dL (0.6-1.0)
[2025-01-02 08:21] LABS: DIFFERENTIAL COMMENT 1
[2025-01-02] MEDS: CLOPIDOGREL 75MG TABLET PO SCH (10:14)
[2025-01-02] MEDS: PANTOPRAZOLE 40MG DR TABLET PO SCH (11:00)
[2025-01-02 11:41] LABS: ANISOCYTOSIS 2+; HYPOCHROMASIA 1+; PLATELET ESTIMATE NORMAL; TARGET CELLS 1+
[2025-01-02] MEDS ORDERED: COR3 MT (14:07)
[2025-01-03] MEDS ORDERED: PANTOPRAZOLE 40MG DR TABLET PO SCH (07:40)
== END 2025-01-02 21:45 | disposition home health service (06) | DRG 252 ==
LOC: ER 19:18 → EDBEDREQ 20:50 → 7WST 22:45 → EDBEDREQ 22:58 → ENRESERV 23:24
PROVIDERS: ADMIT Internal Medicine; ATTEND Internal Medicine
PROC: B51N1ZZ Fluoroscopy of Left Upper Extremity Veins using Low Osmolar Contrast (ICD-10-PCS; principal; 2024-12-31)
PROC: 05763DZ Dilation of Left Subclavian Vein with Intraluminal Device, Percutaneous Approach (ICD-10-PCS; 2024-12-31)
PROC: 05HA33Z Insertion of Infusion Device into Left Brachial Vein, Percutaneous Approach (ICD-10-PCS; 2024-12-31)
PROC: B54NZZA Ultrasonography of Left Upper Extremity Veins, Guidance (ICD-10-PCS; 2024-12-31)
PROC: B5171ZZ Fluoroscopy of Left Subclavian Vein using Low Osmolar Contrast (ICD-10-PCS; 2024-12-31)
DX: I87.1 Compression of vein (principal); I50.23 Acute on chronic systolic (congestive) heart failure; I13.0 Hypertensive heart and chronic kidney disease with heart failure and stage 1 through stage 4 chronic kidney disease, or unspecified chronic kidney disease; I42.0 Dilated cardiomyopathy; N17.9 Acute kidney failure, unspecified; N18.9 Chronic kidney disease, unspecified; I27.20 Pulmonary hypertension, unspecified; M47.9 Spondylosis, unspecified; G89.4 Chronic pain syndrome; I08.1 Rheumatic disorders of both mitral and tricuspid valves; D63.8 Anemia in other chronic diseases classified elsewhere; E78.5 Hyperlipidemia, unspecified; Z99.3 Dependence on wheelchair; Z88.2 Allergy status to sulfonamides; Z79.899 Other long term (current) drug therapy; Z79.02 Long term (current) use of antithrombotics/antiplatelets; Z86.718 Personal history of other venous thrombosis and embolism; Z95.810 Presence of automatic (implantable) cardiac defibrillator; Z79.82 Long term (current) use of aspirin; E87.5 Hyperkalemia; M75.102 Unspecified rotator cuff tear or rupture of left shoulder, not specified as traumatic
CPT/HCPCS: 36415; 37238; 71045; 71250; 75820; 80048; 82330; 83735; 83880; 84439; 84443; 84484; 85025; 93005; 93922; 93971; 97112; 97162; 97166; 97530; 99291; A4606; C1725; C1769; C1893; J1644; J1650; J1940; J2250; J2270; J3010; J3490; Q9967; C1887

== ENCOUNTER 2025-01-20 16:18 | Inpatient (IN) | payer MEDICARE ==
[~2025-01-20] VITALS: Ht 157.5 cm; Wt 68.0 kg
[~2025-01-20 16:18] MED LIST changes: -CARV12.545 PO; +COR3 MT; -SACU1TAB PO
[2025-01-20 18:31] LABS: BASOPHILS % 1.4 % (0.0-2.0); EOSINOPHILS % 0.9 % (0.0-5.0); HEMATOCRIT. 21.9 % (36.0-48.0); HEMOGLOBIN. 7.3 g/dL (12.0-16.0); LYMPHOCYTES % 37.8 % (20.0-50.0); MEAN CORPUSCULAR HEMOGLOBIN 28.4 pg (28.0-32.0); MEAN CORPUSCULAR HGB CONC 33.5 g/dL (31.0-37.0); MEAN CORPUSCULAR VOLUME 84.6 fL (81.0-99.0); MEAN PLATELET VOLUME 9.3 fl (7.4-10.4); MONOCYTES % 14.1 % (2.0-8.0); NEUTROPHILS % 45.8 % (40.0-76.0); PLATELET 322 x1000/uL (130-400); RED BLOOD CELL COUNT 2.59 mill/uL (4.2-5.4); RED CELL DISTRIBUTION WIDTH 21.9 % (11.6-14.6); WHITE BLOOD COUNT 3.4 x1000/uL (4.5-11.0)
[2025-01-20 18:39] LABS: CHLORIDE 99 mEq/L (98-107); POTASSIUM 4.3 mEq/L (3.5-5.1); SODIUM 135 mEq/L (136-145)
[2025-01-20 18:40] LABS: CALCIUM 8.7 mg/dL (8.7-10.4); CARBON DIOXIDE 26 mEq/L (21-32)
[2025-01-20 18:45] LABS: CREATININE 2.5 mg/dL (0.6-1.0); GLUCOSE 99 mg/dL (70-105); TROPONIN I HIGH SENSITIVITY 17 ng/L (3.0-34); UREA NITROGEN BLOOD 63 mg/dL (9-23)
[2025-01-20 19:09] LABS: INR 1.4; PARTIAL THROMBOPLASTIN TIME 30.2 sec (23.4-31.0); PROTHROMBIN TIME 14.6 sec (9.6-11.0)
[2025-01-20 19:53] LABS: TROPONIN I HIGH SENSITIVITY 18 ng/L (3.0-34)
[2025-01-20] MEDS ORDERED: CLONIDINE 0.1MG TABLET PO PRN (21:45)
[2025-01-20] MEDS: FUROSEMIDE 40MG/4ML VIAL IVP SCH (21:45)
[2025-01-20] MEDS ORDERED: ONDANSETRON HCL 4MG/2ML INJ IV PRN (21:45)
[2025-01-20] MEDS ORDERED: IPRATROPIUM/ALBUTEROL 0.5-3(2.5)MG/3ML NEB NEB PRN (22:10)
[2025-01-20] MEDS ORDERED: HYDROCODONE/ACETAMINOPHEN 5/325MG TABLET PO PRN (22:11)
[2025-01-20] MEDS: ASPIRIN 81MG TABLET PO SCH (23:19)
[2025-01-21] VITALS: BP 125/62; PULSE 60; RESP 19; TEMP 36.2; O2SAT 100
[2025-01-21 00:11] VITALS: BP 125/62; PULSE 65; RESP 19; TEMP 36.3
[2025-01-21] MEDS: ZOLPIDEM TARTRATE 5MG TABLET PO PRN (00:37)
[2025-01-21] MEDS ORDERED: SACU1TAB PO (02:18)
[2025-01-21] MEDS ORDERED: EMPA10TA PO (02:19)
[2025-01-21] MEDS ORDERED: ALBU4TAB6 MT (02:21)
[2025-01-21] MEDS ORDERED: SPIR25TA PO (02:22)
[2025-01-21] MEDS ORDERED: POTA-354 PO (02:23)
[2025-01-21 08:03] VITALS: BP 144/70; PULSE 68; RESP 18; TEMP 36.4; O2SAT 100
[2025-01-21] MEDS: SACUBITRIL/VALSARTAN 24MG/26MG TABLET PO SCH (08:45)
[2025-01-21] MEDS: CARVEDILOL 3.125 MG TABLET PO SCH (08:46)
[2025-01-21] MEDS: PANTOPRAZOLE SODIUM 40 MG/VIAL IV SCH (08:48)
[2025-01-21] MEDS: ENOXAPARIN 30MG/0.3ML SYR SUBCUT SCH (09:25)
[2025-01-21 09:29] LABS: BASOPHILS % 1.2 % (0.0-2.0); DIFFERENTIAL COMMENT 0; EOSINOPHILS % 1.3 % (0.0-5.0); LYMPHOCYTES % 32.1 % (20.0-50.0); MEAN CORPUSCULAR HEMOGLOBIN 28.3 pg (28.0-32.0); MEAN CORPUSCULAR HGB CONC 32.7 g/dL (31.0-37.0); MEAN CORPUSCULAR VOLUME 86.4 fL (81.0-99.0); MEAN PLATELET VOLUME 9.3 fl (7.4-10.4); MONOCYTES % 13.1 % (2.0-8.0); NEUTROPHILS % 52.3 % (40.0-76.0); PLATELET 316 x1000/uL (130-400); RED BLOOD CELL COUNT 2.42 mill/uL (4.2-5.4); RED CELL DISTRIBUTION WIDTH 21.7 % (11.6-14.6); WHITE BLOOD COUNT 3.7 x1000/uL (4.5-11.0)
[2025-01-21] MEDS ORDERED: SACUBITRIL/VALSARTAN 24MG/26MG TABLET PO SCH (09:30)
[2025-01-21] MEDS ORDERED: IPRATROPIUM/ALBUTEROL 0.5-3(2.5)MG/3ML NEB HHN PRN (09:30)
[2025-01-21] MEDS ORDERED: PANTOPRAZOLE 40MG DR TABLET PO SCH (09:30)
[2025-01-21 09:33] LABS: POTASSIUM 4.4 mEq/L (3.5-5.1)
[2025-01-21 09:34] LABS: CALCIUM 8.9 mg/dL (8.7-10.4)
[2025-01-21 09:39] LABS: CREATININE 2.8 mg/dL (0.6-1.0)
[2025-01-21 09:42] LABS: HEMATOCRIT. 20.9 % (36.0-48.0); HEMOGLOBIN. 6.8 g/dL (12.0-16.0)
[2025-01-21] MEDS ORDERED: NALOXONE HCL 0.4MG/ML VIAL IV PRN (09:45)
[2025-01-21] MEDS: EMPAGLIFLOZIN 10MG TABLET PO SCH (09:58)
[2025-01-21] MEDS: SPIRONOLACTONE 25MG TABLET PO SCH (09:58)
[2025-01-21 12:10] VITALS: BP 118/58; PULSE 68; RESP 20; TEMP 36.6; O2SAT 100
[2025-01-21 13:01] LABS: CREATINE KINASE 85 IU/L (34-145)
[2025-01-21 16:06] VITALS: BP 112/46; PULSE 66; RESP 20; TEMP 36.4; O2SAT 99
[2025-01-21 20:00] VITALS: BP 106/44; PULSE 71; RESP 19; TEMP 36.2; O2SAT 96
[2025-01-21] MEDS: ATORVASTATIN CALCIUM 20MG TABLET PO SCH (21:41)
[2025-01-22] VITALS (15 sets, daily range): BP systolic 104–128; BP diastolic 47–80; PULSE 64–94; RESP 18–20; TEMP 35.89176–36.6696; O2SAT 97–98
[2025-01-22] MEDS: PANTOPRAZOLE 40MG DR TABLET PO SCH (06:34)
[2025-01-22] MEDS ORDERED: LIDOCAINE HCL 1% 10 MG/ML 10ML VIAL ONE (07:08)
[2025-01-22 09:46] LABS: MEAN CORPUSCULAR HEMOGLOBIN 28.2 pg (28.0-32.0); MEAN CORPUSCULAR HGB CONC 33.2 g/dL (31.0-37.0); MEAN CORPUSCULAR VOLUME 84.9 fL (81.0-99.0); MEAN PLATELET VOLUME 8.9 fl (7.4-10.4); PLATELET 282 x1000/uL (130-400); RED BLOOD CELL COUNT 2.01 mill/uL (4.2-5.4); RED CELL DISTRIBUTION WIDTH 21.4 % (11.6-14.6); WHITE BLOOD COUNT 4.1 x1000/uL (4.5-11.0)
[2025-01-22 10:03] LABS: CALCIUM 8.5 mg/dL (8.7-10.4); POTASSIUM 4.4 mEq/L (3.5-5.1)
[2025-01-22 10:08] LABS: CREATININE 2.5 mg/dL (0.6-1.0)
[2025-01-22 10:13] LABS: DIFFERENTIAL COMMENT 1; HEMATOCRIT. 17.1 % (36.0-48.0); HEMOGLOBIN. 5.7 g/dL (12.0-16.0)
[2025-01-22 10:16] LABS: CLARITY URINE CLEAR (CLEAR); COLOR URINE YELLOW (YELLOW); GLUCOSE URINE TRACE (NEGATIVE); KETONES URINE NEGATIVE (NEGATIVE); LEUKOCYTE ESTERASE URINE NEGATIVE (NEGATIVE); NITRITE URINE NEGATIVE (NEGATIVE); OCCULT BLOOD URINE NEGATIVE (NEGATIVE); PROTEIN URINE NEGATIVE (NEGATIVE); SPECIFIC GRAVITY URINE 1.008 (1.005-1.030)
[2025-01-22 10:43] LABS: RBC URINE NONE SEEN /hpf (0-2); SQUAMOUS EPITHELIAL CELL URINE FEW /lpf (RARE/1+); WBC URINE 0-2 /hpf (0-2)
[2025-01-22 10:44] LABS: BACTERIA URINE FEW; YEAST URINE NONE SEEN
[2025-01-22 12:17] LABS: ANISOCYTOSIS 3+; PLATELET ESTIMATE NORMAL
[2025-01-22] MEDS: FUROSEMIDE 40MG/4ML VIAL IVP SCH (12:39)
[2025-01-22 18:55] LABS: HEMOGLOBIN 8.3 g/dL (12.0-16.0)
[2025-01-23] VITALS: BP 118/56; PULSE 80; RESP 20; TEMP 36.4; O2SAT 97
[2025-01-23 04:00] VITALS: BP 110/59; PULSE 79; RESP 19; TEMP 36.7
[2025-01-23 08:00] VITALS: BP 150/84; PULSE 71; RESP 20; TEMP 36.4; O2SAT 97
[2025-01-23] MEDS: AMLODIPINE 2.5MG TABLET PO SCH ×2 (10:17→20:32)
[2025-01-23 10:49] LABS: BASOPHILS % 0.6 % (0.0-2.0); EOSINOPHILS % 0.6 % (0.0-5.0); HEMATOCRIT. 26.5 % (36.0-48.0); HEMOGLOBIN. 8.7 g/dL (12.0-16.0); LYMPHOCYTES % 24.5 % (20.0-50.0); MEAN CORPUSCULAR HEMOGLOBIN 28.2 pg (28.0-32.0); MEAN CORPUSCULAR HGB CONC 32.8 g/dL (31.0-37.0); MEAN PLATELET VOLUME 9.1 fl (7.4-10.4); MONOCYTES % 14.8 % (2.0-8.0); NEUTROPHILS % 59.5 % (40.0-76.0); PLATELET 276 x1000/uL (130-400); RED BLOOD CELL COUNT 3.08 mill/uL (4.2-5.4); RED CELL DISTRIBUTION WIDTH 20.7 % (11.6-14.6); WHITE BLOOD COUNT 4.9 x1000/uL (4.5-11.0)
[2025-01-23 11:03] LABS: POTASSIUM 4.6 mEq/L (3.5-5.1)
[2025-01-23 11:04] LABS: CALCIUM 8.8 mg/dL (8.7-10.4)
[2025-01-23 11:09] LABS: CREATININE 2.4 mg/dL (0.6-1.0)
[2025-01-23 12:00] VITALS: BP 117/57; PULSE 70; RESP 18; TEMP 36.6; O2SAT 100
[2025-01-23 16:00] VITALS: BP 123/60; PULSE 75; RESP 18; TEMP 36.8; O2SAT 99
[2025-01-23 20:00] VITALS: BP 115/49; PULSE 79; RESP 18; TEMP 36.1; O2SAT 97
[2025-01-24] VITALS: BP 119/51; PULSE 80; RESP 18; TEMP 36.4; O2SAT 97
[2025-01-24 04:00] VITALS: BP 115/59; PULSE 81; RESP 18; TEMP 36.6; O2SAT 99
[2025-01-24 07:25] LABS: HEMATOCRIT. 24.4 % (36.0-48.0); HEMOGLOBIN. 8.3 g/dL (12.0-16.0); MEAN CORPUSCULAR HEMOGLOBIN 28.8 pg (28.0-32.0); MEAN CORPUSCULAR HGB CONC 33.9 g/dL (31.0-37.0); MEAN CORPUSCULAR VOLUME 84.9 fL (81.0-99.0); MEAN PLATELET VOLUME 8.8 fl (7.4-10.4); PLATELET 238 x1000/uL (130-400); RED BLOOD CELL COUNT 2.88 mill/uL (4.2-5.4); RED CELL DISTRIBUTION WIDTH 20.4 % (11.6-14.6); WHITE BLOOD COUNT 5.3 x1000/uL (4.5-11.0)
[2025-01-24 07:28] LABS: DIFFERENTIAL COMMENT 1
[2025-01-24 07:33] LABS: CHLORIDE 100 mEq/L (98-107); POTASSIUM 4.4 mEq/L (3.5-5.1); SODIUM 137 mEq/L (136-145)
[2025-01-24 07:34] LABS: CALCIUM 9.1 mg/dL (8.7-10.4); CARBON DIOXIDE 28 mEq/L (21-32)
[2025-01-24 07:39] LABS: CREATININE 2.6 mg/dL (0.6-1.0); GLUCOSE 117 mg/dL (70-105); IRON 38 ug/dL (50-170); UREA NITROGEN BLOOD 66 mg/dL (9-23)
[2025-01-24 07:42] LABS: TOTAL IRON BINDING CAPACITY 328 ug/dl (250-425)
[2025-01-24 08:00] VITALS: BP 121/60; PULSE 80; RESP 19; TEMP 36.9; O2SAT 100
[2025-01-24] MEDS ORDERED: AMLO2.5T45 PO (11:52)
[2025-01-24 12:00] VITALS: BP 116/47; PULSE 75; RESP 18; TEMP 36.6; O2SAT 99
[2025-01-24 13:15] LABS: ANISOCYTOSIS 2+; PLATELET ESTIMATE NORMAL
[2025-01-24 16:00] VITALS: BP 120/52; PULSE 74; RESP 20; TEMP 36.5; O2SAT 98
[2025-01-24 20:00] VITALS: BP 113/54; PULSE 78; RESP 18; TEMP 36.3; O2SAT 98
[2025-01-24] MEDS: ACETAMINOPHEN 325MG TABLET PO PRN (22:05)
[2025-01-25] VITALS: BP 102/51; PULSE 78; RESP 21; TEMP 36.6; O2SAT 97
[2025-01-25 04:00] VITALS: BP 115/58; PULSE 74; RESP 18; TEMP 36.6; O2SAT 99
[2025-01-25 07:52] LABS: POTASSIUM 4.7 mEq/L (3.5-5.1)
[2025-01-25 07:54] LABS: CALCIUM 9.2 mg/dL (8.7-10.4)
[2025-01-25 07:58] LABS: CREATININE 2.3 mg/dL (0.6-1.0)
[2025-01-25 08:00] VITALS: BP 98/53; PULSE 65; RESP 18; TEMP 36.7; O2SAT 99
[2025-01-25 08:10] LABS: HEMATOCRIT. 24.3 % (36.0-48.0); HEMOGLOBIN. 8.1 g/dL (12.0-16.0); MEAN CORPUSCULAR HEMOGLOBIN 28.7 pg (28.0-32.0); MEAN CORPUSCULAR HGB CONC 33.2 g/dL (31.0-37.0); MEAN CORPUSCULAR VOLUME 86.3 fL (81.0-99.0); MEAN PLATELET VOLUME 8.5 fl (7.4-10.4); PLATELET 234 x1000/uL (130-400); RED BLOOD CELL COUNT 2.82 mill/uL (4.2-5.4); RED CELL DISTRIBUTION WIDTH 20.5 % (11.6-14.6); WHITE BLOOD COUNT 4.6 x1000/uL (4.5-11.0)
[2025-01-25 08:31] LABS: DIFFERENTIAL COMMENT 1
[2025-01-25 12:00] VITALS: BP 126/58; PULSE 72; RESP 18; TEMP 36.6; O2SAT 100
[2025-01-25 14:00] LABS: ANISOCYTOSIS 2+; PLATELET ESTIMATE NORMAL
[2025-01-25 16:00] VITALS: BP 114/54; PULSE 76; RESP 18; TEMP 36.6; O2SAT 98
[2025-01-25 20:00] VITALS: BP 118/58; PULSE 77; RESP 20; TEMP 36.4; O2SAT 96
[2025-01-26 02:00] VITALS: BP 114/53; PULSE 76; RESP 20; TEMP 36.6; O2SAT 100
[2025-01-26 04:00] VITALS: BP 104/52; PULSE 82; RESP 18; TEMP 36.6; O2SAT 96
[2025-01-26 06:50] LABS: BASOPHILS % 0.9 % (0.0-2.0); EOSINOPHILS % 0.1 % (0.0-5.0); HEMATOCRIT. 22.9 % (36.0-48.0); HEMOGLOBIN. 7.6 g/dL (12.0-16.0); LYMPHOCYTES % 24.5 % (20.0-50.0); MEAN CORPUSCULAR HEMOGLOBIN 29.4 pg (28.0-32.0); MEAN CORPUSCULAR VOLUME 89.2 fL (81.0-99.0); MEAN PLATELET VOLUME 9.1 fl (7.4-10.4); MONOCYTES % 13.9 % (2.0-8.0); NEUTROPHILS % 60.6 % (40.0-76.0); PLATELET 219 x1000/uL (130-400); RED BLOOD CELL COUNT 2.57 mill/uL (4.2-5.4); RED CELL DISTRIBUTION WIDTH 20.7 % (11.6-14.6); WHITE BLOOD COUNT 4.7 x1000/uL (4.5-11.0)
[2025-01-26 06:59] LABS: CREATININE 2.4 mg/dL (0.6-1.0)
[2025-01-26 08:00] VITALS: BP 105/55; PULSE 84; RESP 18; TEMP 36.2; O2SAT 99
[2025-01-26 12:00] VITALS: BP 115/75; PULSE 80; RESP 18; TEMP 36.6; O2SAT 100
[2025-01-26 16:00] VITALS: BP 146/89; PULSE 119; RESP 19; TEMP 36.6; O2SAT 99
[2025-01-26 20:00] VITALS: BP 124/49; PULSE 79; RESP 18; TEMP 36.3; O2SAT 98
[2025-01-27] VITALS: BP 119/59; PULSE 76; RESP 20; TEMP 37; O2SAT 99
[2025-01-27] MEDS: TRAZODONE HCL 50MG TABLET PO SCH (00:07)
[2025-01-27 04:00] VITALS: BP 122/75; PULSE 68; RESP 19; TEMP 36.3; O2SAT 98
[2025-01-27 08:00] VITALS: BP 135/59; PULSE 76; RESP 18; TEMP 36.4; O2SAT 100
[2025-01-27 12:00] VITALS: BP 108/87; PULSE 78; RESP 19; TEMP 36.3; O2SAT 97
[2025-01-27] MEDS: SODIUM ZIRCONIUM CYCLOSILICATE 10GM/PACKET PO NR (14:06)
[2025-01-27 16:00] VITALS: BP 118/53; PULSE 72; RESP 19; TEMP 36.3; O2SAT 90
[2025-01-27 20:00] VITALS: BP 110/57; PULSE 53; RESP 17; TEMP 36.2; O2SAT 100
[2025-01-28] VITALS: BP 117/60; PULSE 74; RESP 19; TEMP 36.8; O2SAT 99
[2025-01-28 04:00] VITALS: BP 130/57; PULSE 63; RESP 17; TEMP 36.1; O2SAT 98
[2025-01-28 07:35] LABS: BASOPHILS % 1.1 % (0.0-2.0); HEMATOCRIT. 24.3 % (36.0-48.0); HEMOGLOBIN. 8.2 g/dL (12.0-16.0); MEAN CORPUSCULAR HEMOGLOBIN 30.1 pg (28.0-32.0); MEAN CORPUSCULAR HGB CONC 33.8 g/dL (31.0-37.0); MEAN PLATELET VOLUME 9.5 fl (7.4-10.4); MONOCYTES % 12.9 % (2.0-8.0); PLATELET 198 x1000/uL (130-400); RED BLOOD CELL COUNT 2.73 mill/uL (4.2-5.4); RED CELL DISTRIBUTION WIDTH 21.8 % (11.6-14.6); WHITE BLOOD COUNT 4.2 x1000/uL (4.5-11.0)
[2025-01-28 07:37] LABS: POTASSIUM 4.6 mEq/L (3.5-5.1)
[2025-01-28 07:39] LABS: CALCIUM 8.7 mg/dL (8.7-10.4)
[2025-01-28 07:43] LABS: CREATININE 2.2 mg/dL (0.6-1.0)
[2025-01-28 08:00] VITALS: BP 122/47; PULSE 68; RESP 18; TEMP 36.4; O2SAT 100
[2025-01-28 12:00] VITALS: BP 120/60; PULSE 68; RESP 18; TEMP 36.7; O2SAT 97
[2025-01-28] MEDS: FERROUS SULFATE 325MG TABLET PO SCH (14:49)
[2025-01-28 16:00] VITALS: BP 120/56; PULSE 57; RESP 18; TEMP 36.3; O2SAT 97
[2025-01-28 20:00] VITALS: BP 115/61; PULSE 72; RESP 20; TEMP 36.3; O2SAT 97
[2025-01-29] VITALS: BP 123/50; PULSE 69; RESP 20; TEMP 36.3; O2SAT 100
[2025-01-29 04:00] VITALS: BP 123/50; PULSE 73; RESP 20; TEMP 36.3; O2SAT 100
[2025-01-29 08:00] VITALS: BP 109/45; PULSE 76; RESP 19; TEMP 36.4; O2SAT 97
[2025-01-29 12:00] VITALS: BP 120/61; PULSE 79; RESP 18; TEMP 36.3; O2SAT 99
[2025-01-29 15:34] VITALS: BP 120/61; PULSE 79; TEMP 97.3; O2SAT 99
== END 2025-01-29 16:45 | disposition home health service (06) | DRG 291 ==
LOC: ER 16:18 → EDBEDREQ 19:52 → ENRESERV 20:20 → 8WST 21:30 → 6EST 01-26 10:09
PROVIDERS: ADMIT Internal Medicine; ATTEND Internal Medicine
PROC: 30243N1 Transfusion of Nonautologous Red Blood Cells into Central Vein, Percutaneous Approach (ICD-10-PCS; principal; 2025-01-22)
PROC: 02HV33Z Insertion of Infusion Device into Superior Vena Cava, Percutaneous Approach (ICD-10-PCS; 2025-01-22)
PROC: B5181ZA Fluoroscopy of Superior Vena Cava using Low Osmolar Contrast, Guidance (ICD-10-PCS; 2025-01-22)
PROC: B548ZZA Ultrasonography of Superior Vena Cava, Guidance (ICD-10-PCS; 2025-01-22)
DX: I13.0 Hypertensive heart and chronic kidney disease with heart failure and stage 1 through stage 4 chronic kidney disease, or unspecified chronic kidney disease (principal); I50.23 Acute on chronic systolic (congestive) heart failure; E87.1 Hypo-osmolality and hyponatremia; N17.9 Acute kidney failure, unspecified; D64.9 Anemia, unspecified; S20.212A Contusion of left front wall of thorax, initial encounter; I44.7 Left bundle-branch block, unspecified; I45.10 Unspecified right bundle-branch block; E11.22 Type 2 diabetes mellitus with diabetic chronic kidney disease; E78.5 Hyperlipidemia, unspecified; I42.0 Dilated cardiomyopathy; N18.30 Chronic kidney disease, stage 3 unspecified; I08.1 Rheumatic disorders of both mitral and tricuspid valves; R63.0 Anorexia; G89.29 Other chronic pain; I25.10 Atherosclerotic heart disease of native coronary artery without angina pectoris; M48.061 Spinal stenosis, lumbar region without neurogenic claudication; M54.16 Radiculopathy, lumbar region; Z79.02 Long term (current) use of antithrombotics/antiplatelets; Z79.82 Long term (current) use of aspirin; Z79.899 Other long term (current) drug therapy; Z86.73 Personal history of transient ischemic attack (TIA), and cerebral infarction without residual deficits; Z88.2 Allergy status to sulfonamides; Z91.81 History of falling; Z95.810 Presence of automatic (implantable) cardiac defibrillator; Z96.649 Presence of unspecified artificial hip joint; X58.XXXA Exposure to other specified factors, initial encounter; Y93.89 Activity, other specified; Y92.89 Other specified places as the place of occurrence of the external cause; Y99.8 Other external cause status; Z68.27 Body mass index [BMI] 27.0-27.9, adult
CPT/HCPCS: 36415; 36573; 71045; 76604; 76770; 80048; 81003; 82550; 83540; 83550; 83880; 84484; 85014; 85018; 85025; 86850; 86900; 86920; 93005; 93970; 93971; 96374; 97110; 97162; 97166; 97530; 97535; 99285; A4606; C1725; J1650; J1940; J2003; J2470; P9016

== ENCOUNTER 2025-01-31 15:27 | Inpatient (IN) | payer MEDICARE ==
[~2025-01-31] VITALS: Ht 152.4 cm; Wt 61.9 kg
[~2025-01-31 15:27] MED LIST changes: +ALBU4TAB6 MT; +AMLO2.5T45 PO; +EMPA10TA PO; +POTA-354 PO; +SACU1TAB PO; +SPIR25TA PO
[2025-01-31 15:30] VITALS: O2SAT 100
[2025-01-31] MEDS: NITROGLYCERIN OINT 1GM/INCH UDPKT TD ONE (15:58)
[2025-01-31 17:04] LABS: BASOPHILS % 0.8 % (0.0-2.0); EOSINOPHILS % 0.1 % (0.0-5.0); HEMATOCRIT. 22.9 % (36.0-48.0); HEMOGLOBIN. 7.6 g/dL (12.0-16.0); LYMPHOCYTES % 24.3 % (20.0-50.0); MEAN CORPUSCULAR HEMOGLOBIN 29.7 pg (28.0-32.0); MEAN CORPUSCULAR HGB CONC 33.3 g/dL (31.0-37.0); MEAN CORPUSCULAR VOLUME 89.3 fL (81.0-99.0); MEAN PLATELET VOLUME 9.2 fl (7.4-10.4); MONOCYTES % 9.5 % (2.0-8.0); NEUTROPHILS % 65.3 % (40.0-76.0); PLATELET 214 x1000/uL (130-400); RED BLOOD CELL COUNT 2.57 mill/uL (4.2-5.4); RED CELL DISTRIBUTION WIDTH 22.7 % (11.6-14.6); WHITE BLOOD COUNT 3.3 x1000/uL (4.5-11.0)
[2025-01-31 17:10] LABS: CHLORIDE 103 mEq/L (98-107); POTASSIUM 4.7 mEq/L (3.5-5.1); SODIUM 138 mEq/L (136-145)
[2025-01-31 17:12] LABS: CALCIUM 8.9 mg/dL (8.7-10.4); CARBON DIOXIDE 23 mEq/L (21-32)
[2025-01-31 17:15] LABS: INR 1.3; PROTHROMBIN TIME 14.1 sec (9.6-11.0)
[2025-01-31 17:17] LABS: ADD RBC MORPHOLOGY YES; DIFFERENTIAL COMMENT 1; GLUCOSE 78 mg/dL (70-105); TROPONIN I HIGH SENSITIVITY 24 ng/L (3.0-34); UREA NITROGEN BLOOD 56 mg/dL (9-23)
[2025-01-31 17:19] LABS: ALANINE AMINOTRANSFERASE 12 IU/L (10-49); ALBUMIN 3.8 g/dL (3.2-4.8); ASPARTATE AMINOTRANSFERASE 20 IU/L (<34); BILIRUBIN DIRECT 1.1 mg/dL (<=3.0); BILIRUBIN TOTAL 1.6 mg/dL (0.1-1.0); PROTEIN TOTAL 7.2 g/dL (6.0-8.3)
[2025-01-31] MEDS ORDERED: MORPHINE SULFATE 2 MG/ML INJ (NOT FOR IM USE) IV ONE (17:45)
[2025-01-31 18:17] LABS: ANISOCYTOSIS 2+; PLATELET ESTIMATE NORMAL
[2025-01-31 18:18] LABS: OVALOCYTES 1+
[2025-01-31] MEDS: FUROSEMIDE 40MG/4ML VIAL IVP ONE (19:09)
[2025-01-31] MEDS: ASPIRIN 325MG TABLET PO ONE (19:09)
[2025-01-31] MEDS: MORPHINE SULFATE 4 MG/ML INJ (FOR IV/IM USE) IV SCH (19:24)
[2025-01-31 19:38] LABS: TROPONIN I HIGH SENSITIVITY 21 ng/L (3.0-34)
[2025-01-31 20:00] VITALS: BP 127/75; PULSE 78; RESP 17; TEMP 36.3; O2SAT 100
[2025-01-31] MEDS ORDERED: FURO-151 MT (22:36)
[2025-01-31] MEDS ORDERED: PANT40TA51 MT (22:36)
[2025-01-31] MEDS ORDERED: APIX5TAB MT (22:36)
[2025-01-31] MEDS ORDERED: SPIR1TAB4 MT (22:36)
[2025-01-31] MEDS ORDERED: ATOR20TA MT (22:36)
[2025-01-31] MEDS ORDERED: CLOP-31 PO (22:36)
[2025-01-31] MEDS ORDERED: COR3 PO (22:36)
[2025-01-31] MEDS ORDERED: SACU1TAB MT (22:36)
[2025-01-31 23:30] VITALS: BP 127/71; PULSE 78; RESP 17; TEMP 36.3
[2025-02-01] VITALS: BP 147/78; PULSE 78; RESP 18; TEMP 35.9; O2SAT 100
[2025-02-01 04:00] VITALS: BP 124/73; PULSE 75; RESP 18; TEMP 36.7; O2SAT 99
[2025-02-01 06:43] LABS: BASOPHILS % 1.7 % (0.0-2.0); EOSINOPHILS % 0.2 % (0.0-5.0); HEMATOCRIT. 22.8 % (36.0-48.0); HEMOGLOBIN. 7.6 g/dL (12.0-16.0); LYMPHOCYTES % 38.2 % (20.0-50.0); MEAN CORPUSCULAR HEMOGLOBIN 29.8 pg (28.0-32.0); MEAN CORPUSCULAR HGB CONC 33.4 g/dL (31.0-37.0); MEAN PLATELET VOLUME 9.5 fl (7.4-10.4); MONOCYTES % 13.2 % (2.0-8.0); NEUTROPHILS % 46.7 % (40.0-76.0); PLATELET 185 x1000/uL (130-400); RED BLOOD CELL COUNT 2.56 mill/uL (4.2-5.4); WHITE BLOOD COUNT 3.5 x1000/uL (4.5-11.0)
[2025-02-01 06:50] LABS: DIFFERENTIAL COMMENT 1
[2025-02-01 06:57] LABS: POTASSIUM 4.7 mEq/L (3.5-5.1)
[2025-02-01 06:58] LABS: CALCIUM 9.2 mg/dL (8.7-10.4)
[2025-02-01 07:03] LABS: CREATININE 2.1 mg/dL (0.6-1.0)
[2025-02-01] MEDS: PANTOPRAZOLE 40MG DR TABLET PO SCH (07:06)
[2025-02-01] MEDS: FUROSEMIDE 40MG/4ML VIAL IVP SCH (07:06)
[2025-02-01 07:07] LABS: THYROID STIMULATING HORMONE 9.27 uIU/mL (0.55-4.78)
[2025-02-01 08:00] VITALS: BP 128/69; PULSE 75; RESP 20; TEMP 36.6; O2SAT 100
[2025-02-01] MEDS: CLOPIDOGREL 75MG TABLET PO SCH (09:18)
[2025-02-01] MEDS: APIXABAN 2.5 MG TABLET PO SCH (09:19)
[2025-02-01] MEDS: SPIRONOLACTONE 25MG TABLET PO SCH (09:19)
[2025-02-01] MEDS: CARVEDILOL 3.125 MG TABLET PO SCH (09:20)
[2025-02-01] MEDS: SACUBITRIL/VALSARTAN 24MG/26MG TABLET PO SCH (09:20)
[2025-02-01] MEDS: ACETAMINOPHEN 325MG TABLET PO PRN (09:30)
[2025-02-01 12:00] VITALS: BP 128/53; PULSE 70; RESP 18; TEMP 36.6; O2SAT 99
[2025-02-01 16:00] VITALS: BP 114/53; PULSE 66; RESP 20; TEMP 36.5; O2SAT 100
[2025-02-01 20:00] VITALS: BP 107/52; PULSE 69; RESP 20; TEMP 36.8; O2SAT 98
[2025-02-01] MEDS: ATORVASTATIN CALCIUM 20MG TABLET PO SCH (20:40)
[2025-02-01] MEDS: TRAZODONE HCL 50MG TABLET PO SCH (21:49)
[2025-02-01 22:01] LABS: CLARITY URINE CLEAR (CLEAR); COLOR URINE YELLOW (YELLOW); GLUCOSE URINE 1+ (NEGATIVE); KETONES URINE NEGATIVE (NEGATIVE); LEUKOCYTE ESTERASE URINE NEGATIVE (NEGATIVE); NITRITE URINE NEGATIVE (NEGATIVE); OCCULT BLOOD URINE NEGATIVE (NEGATIVE); PH URINE 6.5 (4.5-8.0); PROTEIN URINE NEGATIVE (NEGATIVE); SPECIFIC GRAVITY URINE 1.008 (1.005-1.030)
[2025-02-01 22:10] LABS: RBC URINE NONE SEEN /hpf (0-2); WBC URINE 0-2 /hpf (0-2)
[2025-02-01 22:11] LABS: BACTERIA URINE TRACE; SQUAMOUS EPITHELIAL CELL URINE RARE /lpf (RARE/1+)
[2025-02-02] VITALS: BP 111/77; PULSE 89; RESP 20; TEMP 37; O2SAT 98
[2025-02-02 04:00] VITALS: BP 131/71; PULSE 69; RESP 18; TEMP 36.7; TEMP 36.8; O2SAT 97
[2025-02-02] MEDS: LEVOTHYROXINE SODIUM 50MCG TABLET PO SCH (06:41)
[2025-02-02 08:00] VITALS: BP 119/71; PULSE 70; RESP 18; TEMP 35.9; O2SAT 95
[2025-02-02 12:00] VITALS: BP 131/68; PULSE 77; RESP 19; TEMP 36.7; O2SAT 96
[2025-02-02 16:00] VITALS: BP 113/51; PULSE 70; RESP 17; TEMP 36.6; O2SAT 98
[2025-02-02 20:00] VITALS: BP 113/80; PULSE 79; RESP 18; TEMP 36.7; O2SAT 98
[2025-02-03] VITALS: BP 120/60; PULSE 80; RESP 20; TEMP 36.7; O2SAT 97
[2025-02-03 02:00] VITALS: BP 116/51; PULSE 72; RESP 20; TEMP 37; O2SAT 98
[2025-02-03 04:00] VITALS: BP 116/51; PULSE 72; RESP 20; TEMP 37; O2SAT 98
[2025-02-03] MEDS: ACETAMINOPHEN 325MG TABLET PO PRN (05:29)
[2025-02-03 12:00] VITALS: BP 100/55; PULSE 68; RESP 20; TEMP 36.9; O2SAT 93
[2025-02-03 16:00] VITALS: BP 113/45; PULSE 71; RESP 20; TEMP 35.8; O2SAT 95
[2025-02-03 20:00] VITALS: BP 116/58; PULSE 76; RESP 18; TEMP 36.9; O2SAT 98
[2025-02-04] VITALS: BP 125/70; PULSE 80; RESP 18; TEMP 36.7; O2SAT 97
[2025-02-04 04:00] VITALS: BP 120/60; PULSE 75; RESP 20; TEMP 36.7; O2SAT 98
[2025-02-04 08:00] VITALS: BP 121/53; PULSE 73; RESP 18; TEMP 36.6; O2SAT 100
[2025-02-04 08:08] LABS: BASOPHILS % 0.5 % (0.0-2.0); EOSINOPHILS % 0.8 % (0.0-5.0); HEMOGLOBIN. 7.6 g/dL (12.0-16.0); LYMPHOCYTES % 32.3 % (20.0-50.0); MEAN CORPUSCULAR HEMOGLOBIN 29.3 pg (28.0-32.0); MEAN CORPUSCULAR HGB CONC 32.8 g/dL (31.0-37.0); MEAN CORPUSCULAR VOLUME 89.4 fL (81.0-99.0); MEAN PLATELET VOLUME 9.4 fl (7.4-10.4); MONOCYTES % 14.1 % (2.0-8.0); NEUTROPHILS % 52.3 % (40.0-76.0); PLATELET 239 x1000/uL (130-400); RED BLOOD CELL COUNT 2.57 mill/uL (4.2-5.4); RED CELL DISTRIBUTION WIDTH 22.7 % (11.6-14.6)
[2025-02-04 08:11] LABS: DIFFERENTIAL COMMENT 1
[2025-02-04 08:21] LABS: CALCIUM 9.4 mg/dL (8.7-10.4); CARBON DIOXIDE 28 mEq/L (21-32); CHLORIDE 100 mEq/L (98-107); POTASSIUM 4.5 mEq/L (3.5-5.1); SODIUM 137 mEq/L (136-145)
[2025-02-04 08:25] LABS: IRON 28 ug/dL (50-170)
[2025-02-04 08:26] LABS: CREATININE 2.1 mg/dL (0.6-1.0); GLUCOSE 89 mg/dL (70-105); UREA NITROGEN BLOOD 55 mg/dL (9-23)
[2025-02-04 08:27] LABS: ALANINE AMINOTRANSFERASE 11 IU/L (10-49); LACTATE DEHYDROGENASE 214 IU/L (120-246); TOTAL IRON BINDING CAPACITY 358 ug/dl (250-425)
[2025-02-04 08:28] LABS: ALBUMIN 3.7 g/dL (3.2-4.8); ASPARTATE AMINOTRANSFERASE 19 IU/L (<34); BILIRUBIN DIRECT 0.7 mg/dL (<=3.0); PROTEIN TOTAL 6.9 g/dL (6.0-8.3)
[2025-02-04 08:31] LABS: FOLIC ACID (FOLATE) SERUM 14.29 ng/mL (>5.38)
[2025-02-04 08:33] LABS: FERRITIN 18 ng/mL (10-291)
[2025-02-04 08:58] LABS: VITAMIN B12 SERUM 516 pg/mL (211-911)
[2025-02-04] MEDS ORDERED: NON FORMULARY MED XX SCH (09:45)
[2025-02-04 10:24] LABS: PHOSPHORUS 3.7 mg/dL (2.5-4.9)
[2025-02-04] MEDS: IRON SUCROSE COMPLEX 100 MG/5 ML ML IV SCH (10:39)
[2025-02-04 12:00] VITALS: BP 115/68; PULSE 78; RESP 17; TEMP 36.6; O2SAT 96
[2025-02-04 16:00] VITALS: BP 104/55; PULSE 63; RESP 18; TEMP 36.9; O2SAT 100
[2025-02-04 20:00] VITALS: BP 111/42; PULSE 77; RESP 18; TEMP 36.8; O2SAT 98
[2025-02-05] VITALS: BP 120/57; PULSE 78; PULSE 79; RESP 18; RESP 20; TEMP 36.7; O2SAT 98
[2025-02-05 04:00] VITALS: BP 112/41; PULSE 77; RESP 20; TEMP 37.4; O2SAT 97
[2025-02-05 07:14] LABS: HEMATOCRIT. 23.3 % (36.0-48.0); HEMOGLOBIN. 7.7 g/dL (12.0-16.0); MEAN CORPUSCULAR HEMOGLOBIN 29.5 pg (28.0-32.0); MEAN CORPUSCULAR HGB CONC 33.1 g/dL (31.0-37.0); MEAN CORPUSCULAR VOLUME 89.1 fL (81.0-99.0); PLATELET 268 x1000/uL (130-400); RED BLOOD CELL COUNT 2.61 mill/uL (4.2-5.4); RED CELL DISTRIBUTION WIDTH 22.6 % (11.6-14.6); WHITE BLOOD COUNT 5.2 x1000/uL (4.5-11.0)
[2025-02-05 07:46] LABS: DIFFERENTIAL COMMENT 1
[2025-02-05 07:48] LABS: POTASSIUM 4.3 mEq/L (3.5-5.1)
[2025-02-05 07:53] LABS: CREATININE 2.1 mg/dL (0.6-1.0)
[2025-02-05 08:00] VITALS: BP 105/51; PULSE 96; RESP 18; TEMP 36.6; O2SAT 100
[2025-02-05 09:04] VITALS: PULSE 77
[2025-02-05] MEDS: FUROSEMIDE 40MG TABLET PO SCH (09:13)
[2025-02-05 16:12] LABS: PLATELET ESTIMATE NORMAL
[2025-02-05 16:13] LABS: ANISOCYTOSIS 2+; HYPOCHROMASIA 1+
== END 2025-02-05 16:30 | disposition home or self-care (01) | DRG 291 ==
LOC: ER 15:27 → 8WST 17:32 → EDBEDREQ 17:47 → EDBEDREQTM 17:47
PROVIDERS: ADMIT Internal Medicine; ATTEND Internal Medicine
DX: I13.2 Hypertensive heart and chronic kidney disease with heart failure and with stage 5 chronic kidney disease, or end stage renal disease (principal); I50.23 Acute on chronic systolic (congestive) heart failure; L89.153 Pressure ulcer of sacral region, stage 3; N18.6 End stage renal disease; I48.20 Chronic atrial fibrillation, unspecified; N17.9 Acute kidney failure, unspecified; I87.1 Compression of vein; I25.10 Atherosclerotic heart disease of native coronary artery without angina pectoris; D64.9 Anemia, unspecified; E03.9 Hypothyroidism, unspecified; E87.5 Hyperkalemia; G54.0 Brachial plexus disorders; I42.0 Dilated cardiomyopathy; I34.0 Nonrheumatic mitral (valve) insufficiency; E61.1 Iron deficiency; E16.2 Hypoglycemia, unspecified; M79.89 Other specified soft tissue disorders; E78.5 Hyperlipidemia, unspecified; I25.2 Old myocardial infarction; Z79.01 Long term (current) use of anticoagulants; Z79.02 Long term (current) use of antithrombotics/antiplatelets; Z88.2 Allergy status to sulfonamides; Z95.810 Presence of automatic (implantable) cardiac defibrillator
CPT/HCPCS: 36415; 71045; 80048; 80076; 81003; 82607; 82728; 82746; 83540; 83550; 83615; 83880; 84100; 84443; 84484; 85025; 85044; 93005; 99285; A4606; J1940; J2270